=== PATIENT | female | born 1960 | race Caucasian/White ===

== ENCOUNTER 2017-05-28 09:24 | Emergency (ER) | payer MEDICARE, MEDICAID ==
[2017-05-28] MEDS ORDERED: Sodium Chloride 0.9% 1,000 ML IV ONE (09:39)
[2017-05-28] MEDS ORDERED: Gabapentin 300 MG Cap PO ONE (09:42)
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
[2017-05-28 09:55] VITALS: BP 134/90
[2017-05-28] MEDS ORDERED: Ketorolac 30 MG/ML SDV IM ONE (10:04)
--- NOTE | 2017-05-28 11:05 | CT ---
Clinical history: 56-year-old 178 pound female complaining of upper extremity weakness (history of ce rvical spine spine surgery) reported on previous MRI cervical spine 31 August 2016 for neck pain to have "greater prominence left paracentral disc protrusion at C7-T1 with moderate central stenosis and multilevel spondylosis anterior cervical fusion C4-C6 since 2014". Scan technique: Volume acquisition of data emergency unenhanced CT scan of the cervical spine obtaine d with patient lying supine on the Siemens multi slice CT scanner [place], [place]. All data archived in the PACS system for storage, reformatting and study. Interpretation: Abnormal. 1. Anterior cervical fusion (plate and horizontal screws anchored in the CC 4, C5 and C6 vertebral miranda dies) and reversal or straightening of the usual cervical lordosis. 2. Abnormal intervertebral disc space narrowing C6-7 with associated large hypertrophic uncinate spur s extending posteriorly and laterally into the bony spinal canal at the C56 and C6-7 levels. 3. No sign of prevertebral soft tissue swelling, cervical fracture or spondylolisthesis. No jumped lo cked facets. 4. Less pronounced disc space narrowing but again marginal osteophyte (disc-osteophyte?) posteriorly at the C7-T1 level, particularly to the left of midline. CONCLUSION: Signs of chronic multilevel disc disease with hypertrophic osteophyte formation and anter ior lower cervical fusion. No acute fracture or dislocation.
--- NOTE | 2017-05-28 11:29 | CT ---
56-year-old 178 pound female with bilateral upper extremity weakness (multilevel disc disease, anter ior fusion and hypertrophic uncinate spurs) and low back pain. Scan technique: Volume acquisition of data unenhanced CT scan of the lumbar spine and sacral obtained with patient lying supine on a Siemens multi slice scanner [place], [place]. All data archived in the PACS system for storage, reformatting axial/sagittal/coronal planes and study. Interpretation: Abnormal. 1. Exaggerated lumbar lordosis and generalized osteopenia. 2. *Signs of chronic multilevel lower lumbar disc disease i.e. interspace narrowing with endplate scl erosis, gas in the nucleus pulposus and hypertrophic marginal spur formation lower 2 levels (transiti onal S1 vertebra). 3. No sign of pathologic skeletal lesion, lumbar fracture or spondylolisthesis (dense reactive facet joint sclerosis bilaterally). 4. Symmetric spacing normal-appearing SI and both hip joints without arthritic degenerative change.
== END 2017-05-28 13:17 | disposition home or self-care (01) ==
LOC: DL.ED 09:24
DX: M50.322 Other cervical disc degeneration at C5-C6 level (principal); M50.323 Other cervical disc degeneration at C6-C7 level; M51.36 Other intervertebral disc degeneration, lumbar region; Z88.8 Allergy status to other drugs, medicaments and biological substances; Z79.899 Other long term (current) drug therapy; M19.90 Unspecified osteoarthritis, unspecified site
CPT/HCPCS: 72125; 72131; 80305; 81001; 96360; 96372; 99284; 99285; A9270; J1885; J7030; 12015

== ENCOUNTER 2017-07-04 22:03 | Emergency (ER) | payer MEDICARE, MEDICAID ==
[2017-07-04 22:14] VITALS: BP 133/108
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
[2017-07-04 22:51] LABS: CHLORIDE,CL 105 mmol/L (101-111); SODIUM,NA 142 mmol/L (135-145)
== END 2017-07-04 23:21 | disposition home or self-care (01) ==
LOC: DL.ED 22:03
DX: R56.9 Unspecified convulsions (principal); F43.0 Acute stress reaction; Z88.8 Allergy status to other drugs, medicaments and biological substances; Z79.899 Other long term (current) drug therapy
CPT/HCPCS: 36415; 80053; 80305; 81003; 85025; 99284; G0480; 99283

== ENCOUNTER 2017-10-01 14:00 | Emergency (ER) | payer MEDICARE, MEDICAID ==
[2017-10-01] MEDS ORDERED: Morphine 4 MG/ML Syringe IVPUSH ONE (14:33)
[2017-10-01] MEDS ORDERED: Sodium Chloride 0.9% 10 ML Syringe FLUSH PRN (14:34)
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
[2017-10-01] MEDS ORDERED: LORazepam 2 MG/ML Syringe IVPUSH ONE (14:48)
--- NOTE | 2017-10-01 15:12 | CR ---
Clinical history: 57-year-old female with unexplained abdominal pain. Interpretation: Large volume of stool in the descending right, descending left and rectosigmoid colon i.e. obstipation. No foreign body, pathologic calcifications, abdominal soft tissue mass or signs of mechanical small b owel obstruction (gas and fluid distending the stomach. Carbonated Soda?). No free subdiaphragmatic a ir (atelectasis/fibrosis left lung base) Arthritic changes lower lumbar spine. Symmetric spacing normal-appearing SI and hip joints.
[2017-10-01 15:19] LABS: CHLORIDE,CL 100 mmol/L (101-111); SODIUM,NA 135 mmol/L (135-145)
[2017-10-01 17:45] VITALS: BP 94/58
== END 2017-10-01 18:00 | disposition home or self-care (01) ==
LOC: DL.ED 14:00
DX: N30.91 Cystitis, unspecified with hematuria (principal); K59.00 Constipation, unspecified; F41.9 Anxiety disorder, unspecified; Z88.8 Allergy status to other drugs, medicaments and biological substances; Z79.899 Other long term (current) drug therapy
CPT/HCPCS: 36415; 74019; 80048; 80305; 81001; 85025; 96374; 96375; 99283; J2060; J2270; J7050

== ENCOUNTER 2017-10-30 19:31 | Emergency (ER) | payer MEDICARE, MEDICAID ==
--- NOTE | 2017-10-30 19:40 | EDM.PDOC ---
ED HPI GENERAL MEDICAL PROBLEM - General Chief Complaint: Neuro Symptoms/Deficits Stated Complaint: AMBULANCE,UNRESPONSIVE Time Seen by Provider: 10/30/17 19:35 Source of Information: Reports: EMS History Limitations: Reports: Altered Mental Status - History of Present Illness INITIAL COMMENTS - FREE TEXT/NARRATIVE: EMS state pt's friends went to check on her and found pt unresponsive. they states she was fine 5 hours ago. EMS arrived @ scene of unresponsive pt but only to pain. pt arrived to ER woke up disoriented asking who called to bring her here and whats happening. also pt incontenant. pt has h/o seizures. pt returns to unresponsive only to pain when unstimulated. - Related Data Allergies Allergy/AdvReac Type Severity Reaction Status Date / Time risperidone [From Risperdal] Allergy Fever Verified 10/03/16 19:52 topiramate [From Topamax] Allergy Cannot Verified 05/28/17 09:58 Remember Home Meds: Home Meds traZODone 3 tab PO BEDTIME 06/19/15 [History] DULoxetine [Cymbalta] 60 mg PO DAILY 06/30/16 [History] hydrOXYzine Pamoate [Vistaril] 25 mg PO Q8H PRN 06/30/16 [History] Hydrocodone/Acetaminophen [Hydrocodon-Acetaminophn 10-325] 1 tab PO TID PRN [History] Gabapentin [Neurontin] 1 tab PO TID 10/03/16 [History] Past Medical History HEENT History: Reports: Impaired Vision Gastrointestinal History: Reports: Other (See Below) 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 [employer]ANT [employer]AX[employer] 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 History: Reports: Other (See Below) Other OB/BYN History: hysterectomy, still has ovaries however no uterus Musculoskeletal History: Reports: Arthritis, Fibromyalgia Neurological History: Reports: Other (See Below) Other Neuro History: neck surgery Psychiatric History: Reports: Anxiety, Depression - Past Surgical History Musculoskeletal Surgical History: Reports: Arthroscopic Knee, Knee Replacement, Shoulder Surgery, Other (See Below) Social & Family History - Family History Family Medical History: Noncontributory - Tobacco Use Smoking Status *Q: Never Smoker Years of Tobacco use: 15 Used Tobacco, but Quit: No Second Hand Smoke Exposure: No - Caffeine Use Caffeine Use: Reports: Coffee, Soda, Tea - Alcohol Use Days Per Week of Alcohol Use: 0 - Recreational Drug Use Recreational Drug Use: Yes Drug Use in Last 12 Months: Yes Recreational Drug Type: Reports: Marijuana/Hashish Recreational Drug Use Frequency: Monthly ED ROS GENERAL - Review of Systems Review Of Systems: ROS reveals no pertinent complaints other than HPI. ED EXAM, NEURO - Physical Exam Exam: See Below Exam Limited By: No Limitations General Appearance: Alert, WD/WN, Mild Distress, Other (disoriented) Eye Exam: Bilateral Eye: PERRL (pupils ess ER @ 4mm) Ears: Hearing Grossly Normal Throat/Mouth: Normal Voice, No Airway Compromise Head Exam: Atraumatic Neck: Non-Tender, Full Range of Motion Respiratory/Chest: No Respiratory Distress Cardiovascular: Regular Rate, Rhythm GI/Abdominal: Soft, Non-Tender Neurological: Alert, No Motor/Sensory Deficits Psychiatric: Flat Affect Skin Exam: Warm, Dry, Normal Color Course - Vital Signs Last Recorded V/S: Last Vital Signs Temp 36.6 C 10/30/17 21:12 Pulse 116 H 10/30/17 21:36 Resp 11 L 10/30/17 21:36 BP 90/71 10/30/17 21:36 Pulse Ox 93 L 10/30/17 21:36 - Orders/Labs/Meds Orders: Active Orders 24 hr Category Date Time Status EKG 12 Lead [EKG Documentation Completion] [RC] STAT Care 10/30/17 19:40 Active Insert [place] Catheter [Insert Urinary Catheter] [OM.PC] Care 10/30/17 20:15 Ordered Q24H POC Glucose [Blood Glucose Check, Bedside] [RC] ONETIME Care 10/30/17 20:11 Active Urinary Catheter Assessment [RC] ASDIRECTED Care 10/30/17 20:02 Active CULTURE BLOOD [BC] Stat Lab 10/30/17 19:45 Received Orphenadrine [Norflex] Med 10/30/17 20:45 Active 60 mg IM Q12H Medication Orders Orphenadrine Citrate (Norflex) 60 mg IM Q12H [facility] Last Admin: 10/30/17 20:40 Dose: 60 mg Labs: Laboratory Tests 10/30/17 10/30/17 10/30/17 Range/Units 19:45 19:45 19:45 WBC 12.1 H (5.0-10.0) 10^3/uL RBC 3.65 L (4.2-5.4) 10^6/uL Hgb 10.6 L (12.0-16.0) g/dL Hct 33.0 L (37.0-47.0) % MCV 90.4 (80-100) fL MCH 29.0 (27.0-34.0) pg MCHC 32.1 L (33.0-35.0) g/dL Plt Count 185 (150-450) 10^3/uL Neut % (Auto) 79.9 H (42.2-75.2) % Lymph % (Auto) 9.2 L (20.5-50.1) % [place] % (Auto) 10.1 H (2-8) % Eos % (Auto) 0.7 L (1.0-3.0) % Baso % (Auto) 0.1 (0.0-1.0) % PT 9.7 (9.0-12.0) SEC INR 1.0 (0.9-1.2) APTT 25.5 (22.0-34.0) SEC Sodium 132 L (135-145) mmol/L Potassium 4.2 (3.6-5.0) mmol/L Chloride 101 (101-111) mmol/L Carbon Dioxide 24.0 (21.0-31.0) mmol/L Anion Gap 11.2 BUN 20 H (7-18) mg/dL Creatinine 1.1 (0.6-1.3) mg/dL Est Cr Clr Drug Dosing TNP Estimated GFR (MDRD) 52 BUN/Creatinine Ratio 18.18 Glucose 115 H (74-105) mg/dL POC Glucose (70-105) mg/dl Lactic Acid (0.5-2.2) mmol/L Calcium 8.4 (8.4-10.2) mg/dl Total Bilirubin 0.5 (0.2-1.0) mg/dL AST 27 (10-42) IU/L ALT 27 (10-60) IU/L Alkaline Phosphatase 65 (42-121) IU/L Troponin I < 0.02 (0.00-0.02) ng/ml Total Protein 6.8 (6.7-8.2) g/dl Albumin 3.7 (3.2-5.5) g/dl Globulin 3.1 Albumin/Globulin Ratio 1.19 Urine Color (YELLOW) Urine Appearance (CLEAR) Urine pH (5.0-9.0) Ur Specific [place] (1.005-1.030) Urine Protein (NEGATIVE) Urine Glucose (UA) (NEGATIVE) Urine Ketones (NEGATIVE) Urine Occult Blood (NEGATIVE) Urine Nitrite (NEGATIVE) Urine Bilirubin (NEGATIVE) Urine Urobilinogen (0.2-1.0) mg/dL Ur Leukocyte Esterase (NEGATIVE) Urine RBC /HPF Urine WBC (0-5/HPF) /HPF Ur Epithelial Cells /HPF Urine Bacteria (0-FEW/HPF) /HPF Urine Opiates Screen (NEGATIVE) Ur Oxycodone Screen (NEGATIVE) Urine Methadone Screen (NEGATIVE) Ur Barbiturates Screen (NEGATIVE) Phenytoin < 2.5 L (10-20) ug/dL U Tricyclic Antidepress (NEGATIVE) Ur Phencyclidine Scrn (NEGATIVE) Ur Amphetamine Screen (NEGATIVE) U Methamphetamines Scrn (NEGATIVE) Urine MDMA Screen (NEGATIVE) U Benzodiazepines Scrn (NEGATIVE) Urine Cocaine Screen (NEGATIVE) U Marijuana (THC) Screen (NEGATIVE) Ethyl Alcohol < 5 mg/dL 10/30/17 10/30/17 10/30/17 Range/Units 19:45 20:10 20:10 WBC (5.0-10.0) 10^3/uL RBC (4.2-5.4) 10^6/uL Hgb (12.0-16.0) g/dL Hct (37.0-47.0) % MCV (80-100) fL MCH (27.0-34.0) pg MCHC (33.0-35.0) g/dL Plt Count (150-450) 10^3/uL Neut % (Auto) (42.2-75.2) % Lymph % (Auto) (20.5-50.1) % [place] % (Auto) (2-8) % Eos % (Auto) (1.0-3.0) % Baso % (Auto) (0.0-1.0) % PT (9.0-12.0) SEC INR (0.9-1.2) APTT (22.0-34.0) SEC Sodium (135-145) mmol/L Potassium (3.6-5.0) mmol/L Chloride (101-111) mmol/L Carbon Dioxide (21.0-31.0) mmol/L Anion Gap BUN (7-18) mg/dL Creatinine (0.6-1.3) mg/dL Est Cr Clr Drug Dosing Estimated GFR (MDRD) BUN/Creatinine Ratio Glucose (74-105) mg/dL POC Glucose (70-105) mg/dl Lactic Acid 1.3 (0.5-2.2) mmol/L Calcium (8.4-10.2) mg/dl Total Bilirubin (0.2-1.0) mg/dL AST (10-42) IU/L ALT (10-60) IU/L Alkaline Phosphatase (42-121) IU/L Troponin I (0.00-0.02) ng/ml Total Protein (6.7-8.2) g/dl Albumin (3.2-5.5) g/dl Globulin Albumin/Globulin Ratio Urine Color Dark yellow (YELLOW) Urine Appearance Clear (CLEAR) Urine pH 5.5 (5.0-9.0) Ur Specific [place] 1.020 (1.005-1.030) Urine Protein Trace H (NEGATIVE) Urine Glucose (UA) Negative (NEGATIVE) Urine Ketones Trace H (NEGATIVE) Urine Occult Blood Negative (NEGATIVE) Urine Nitrite Negative (NEGATIVE) Urine Bilirubin Small H (NEGATIVE) Urine Urobilinogen 0.2 (0.2-1.0) mg/dL Ur Leukocyte Esterase Negative (NEGATIVE) Urine RBC 0-5 /HPF Urine WBC 0-5 (0-5/HPF) /HPF Ur Epithelial Cells Rare /HPF Urine Bacteria Many H (0-FEW/HPF) /HPF Urine Opiates Screen Positive H (NEGATIVE) Ur Oxycodone Screen Positive H (NEGATIVE) Urine Methadone Screen Negative (NEGATIVE) Ur Barbiturates Screen Negative (NEGATIVE) Phenytoin (10-20) ug/dL U Tricyclic Antidepress Negative (NEGATIVE) Ur Phencyclidine Scrn Negative (NEGATIVE) Ur Amphetamine Screen Negative (NEGATIVE) U Methamphetamines Scrn Negative (NEGATIVE) Urine MDMA Screen Negative (NEGATIVE) U Benzodiazepines Scrn Negative (NEGATIVE) Urine Cocaine Screen Negative (NEGATIVE) U Marijuana (THC) Screen Negative (NEGATIVE) Ethyl Alcohol mg/dL 10/30/17 Range/Units 20:10 WBC (5.0-10.0) 10^3/uL RBC (4.2-5.4) 10^6/uL Hgb (12.0-16.0) g/dL Hct (37.0-47.0) % MCV (80-100) fL MCH (27.0-34.0) pg MCHC (33.0-35.0) g/dL Plt Count (150-450) 10^3/uL Neut % (Auto) (42.2-75.2) % Lymph % (Auto) (20.5-50.1) % [place] % (Auto) (2-8) % Eos % (Auto) (1.0-3.0) % Baso % (Auto) (0.0-1.0) % PT (9.0-12.0) SEC INR (0.9-1.2) APTT (22.0-34.0) SEC Sodium (135-145) mmol/L Potassium (3.6-5.0) mmol/L Chloride (101-111) mmol/L Carbon Dioxide (21.0-31.0) mmol/L Anion Gap BUN (7-18) mg/dL Creatinine (0.6-1.3) mg/dL Est Cr Clr Drug Dosing Estimated GFR (MDRD) BUN/Creatinine Ratio Glucose (74-105) mg/dL POC Glucose 94 (70-105) mg/dl Lactic Acid (0.5-2.2) mmol/L Calcium (8.4-10.2) mg/dl Total Bilirubin (0.2-1.0) mg/dL AST (10-42) IU/L ALT (10-60) IU/L Alkaline Phosphatase (42-121) IU/L Troponin I (0.00-0.02) ng/ml Total Protein (6.7-8.2) g/dl Albumin (3.2-5.5) g/dl Globulin Albumin/Globulin Ratio Urine Color (YELLOW) Urine Appearance (CLEAR) Urine pH (5.0-9.0) Ur Specific [place] (1.005-1.030) Urine Protein (NEGATIVE) Urine Glucose (UA) (NEGATIVE) Urine Ketones (NEGATIVE) Urine Occult Blood (NEGATIVE) Urine Nitrite (NEGATIVE) Urine Bilirubin (NEGATIVE) Urine Urobilinogen (0.2-1.0) mg/dL Ur Leukocyte Esterase (NEGATIVE) Urine RBC /HPF Urine WBC (0-5/HPF) /HPF Ur Epithelial Cells /HPF Urine Bacteria (0-FEW/HPF) /HPF Urine Opiates Screen (NEGATIVE) Ur Oxycodone Screen (NEGATIVE) Urine Methadone Screen (NEGATIVE) Ur Barbiturates Screen (NEGATIVE) Phenytoin (10-20) ug/dL U Tricyclic Antidepress (NEGATIVE) Ur Phencyclidine Scrn (NEGATIVE) Ur Amphetamine Screen (NEGATIVE) U Methamphetamines Scrn (NEGATIVE) Urine MDMA Screen (NEGATIVE) U Benzodiazepines Scrn (NEGATIVE) Urine Cocaine Screen (NEGATIVE) U Marijuana (THC) Screen (NEGATIVE) Ethyl Alcohol mg/dL Meds: Medications Generic Name Dose Route Start Last Admin Trade Name Freq PRN Reason Stop Dose Admin Orphenadrine Citrate 60 mg 10/30/17 20:45 10/30/17 20:40 Norflex IM 60 mg Q12H JULIET Administration Discontinued Medications Generic Name Dose Route Start Last Admin Trade Name Freq PRN Reason Stop Dose Admin Ketorolac Tromethamine 30 mg 10/30/17 20:20 10/30/17 20:23 Toradol IVPUSH 10/30/17 20:21 30 mg ONETIME ONE Administration Ketorolac Tromethamine Confirm 10/30/17 20:22 10/30/17 20:25 Toradol Administered 10/30/17 20:23 Not Given Dose 30 mg .ROUTE .STK-MED ONE Naloxone HCl 0.5 mg 10/30/17 20:11 10/30/17 20:13 Narcan IVPUSH 10/30/17 20:12 0.5 mg ONETIME ONE Administration Naloxone HCl Confirm 10/30/17 20:12 10/30/17 20:25 Narcan Administered 10/30/17 20:13 Not Given Dose 2 mg .ROUTE .STK-MED ONE - Re-Assessments/Exams Free Text/Narrative Re-Assessment/Exam: 10/30/17 20:06 now unresponsive to pain. jonah inserted. 10/30/17 20:21 s/p narcan pt woke up got angry asking why her friends got into her appt. also now in pain and crying. 10/30/17 20:41 pt states wants to go home and her mother can come to get her & she is not happy about her pain returning after narcan was given. explained to pt re' excess opiods can produce bad results. pt states she has been taking oxy for the past year and never had any problems with them. pt still unhappy about why her friends got into her appt. 10/30/17 21:42 mother arrived. situation discussed with mother. mother and daughter discussed Tx plan. pt prefers home. 10/30/17 22:00 pt tried to stand but unable since her back hurts too much. denies leg weakness & recent falling. 10/30/17 22:[address] Ngo @ who kindly accepted pt. Departure - Departure Time of Disposition: 22:35 Disposition: DC/Tfer to Acute Hospital 02 Condition: Fair Clinical Impression: Lumbar paraspinal muscle spasm Opioid antagonist adverse reaction Qualifiers: Encounter type: initial encounter Qualified Code(s): T50.7X5A - Adverse effect of analeptics and opioid receptor antagonists, initial encounter - Discharge Information Forms: Interfacility Transfer EMTALA Additional Instructions: 1) avoid using excessive pain meds 2) see family doctor Wednesday 3) return if there is any change or concern - My Orders Last 24 Hours: My Active Orders 10/30/17 19:40 EKG 12 Lead [EKG Documentation Completion] [RC] STAT 10/30/17 19:45 CULTURE BLOOD [BC] Stat 10/30/17 20:02 Urinary Catheter Assessment [RC] ASDIRECTED 10/30/17 20:11 POC Glucose [Blood Glucose Check, Bedside] [RC] ONETIME 10/30/17 20:15 Insert Montejo Catheter [Insert Urinary Catheter] [OM.PC] Q24H 10/30/17 20:45 Orphenadrine [Norflex] 60 mg IM Q12H - Assessment/Plan Last 24 Hours: My Active Orders 10/30/17 19:40 EKG 12 Lead [EKG Documentation Completion] [RC] STAT 10/30/17 19:45 CULTURE BLOOD [BC] Stat 10/30/17 20:02 Urinary Catheter Assessment [RC] ASDIRECTED 10/30/17 20:11 POC Glucose [Blood Glucose Check, Bedside] [RC] ONETIME 10/30/17 20:15 Insert Montejo Catheter [Insert Urinary Catheter] [OM.PC] Q24H 10/30/17 20:45 Orphenadrine [Norflex] 60 mg IM Q12H
[2017-10-30] MEDS ORDERED: Naloxone 2 MG/2 ML Syringe IVPUSH ONE (20:11)
[2017-10-30] MEDS ORDERED: Naloxone 2 MG/2 ML Syringe ONE (20:12)
[2017-10-30] MEDS ORDERED: Ketorolac 30 MG/ML SDV IVPUSH ONE (20:20)
[2017-10-30] MEDS ORDERED: Ketorolac 30 MG/ML SDV ONE (20:22)
[2017-10-30 20:28] LABS: CHLORIDE,CL 101 mmol/L (101-111); SODIUM,NA 132 mmol/L (135-145)
[2017-10-30 21:39] VITALS: BP 90/71
--- NOTE | 2017-11-01 10:26 | EKG ---
10/30/2017- RUSTY MUNSON - This is normal sinus rhythm, ventricular rate 97 beats per minute, normal OH interval and QRS duration, normal axis. No significant ST-T changes. [facility] /[id number]
== END 2017-10-30 22:58 ==
LOC: DL.ED 19:31
DX: M62.830 Muscle spasm of back (principal); T50.7X5A Adverse effect of analeptics and opioid receptor antagonists, initial encounter; F41.9 Anxiety disorder, unspecified; F32.9 Major depressive disorder, single episode, unspecified; Z88.8 Allergy status to other drugs, medicaments and biological substances; Z79.899 Other long term (current) drug therapy; Z86.69 Personal history of other diseases of the nervous system and sense organs
CPT/HCPCS: 36415; 51702; 70450; 80053; 80185; 80305; 81001; 82962; 83605; 84484; 85025; 85610; 85730; 87040; 93005; 93010; 96372; 96374; 96375; 99284; 99285; G0480; J1885; J2310; J2360

== ENCOUNTER 2017-11-30 12:19 | Emergency (ER) | payer MEDICARE, MEDICAID ==
[2017-11-30] MEDS ORDERED: Sodium Chloride 0.9% 1,000 ML IV ONE (14:36)
[2017-11-30] MEDS ORDERED: Ketorolac 30 MG/ML SDV IVPUSH ONE (14:36)
--- NOTE | 2017-11-30 14:43 | EDM.PDOC ---
ED HPI GENERAL MEDICAL PROBLEM - General Chief Complaint: Back Pain or Injury Stated Complaint: FROM CLINIC Time Seen by Provider: 11/30/17 14:25 Source of Information: Reports: Patient History Limitations: Reports: No Limitations - History of Present Illness INITIAL COMMENTS - FREE TEXT/NARRATIVE: This 57 yo female patient reports to the ED with left flank pain. The patient reports her symptoms started on Wednesday, but got much worse today. The patient was seen in the clinic prior to coming to the ED, but was advised to come to the ED due to a fall yesterday. The patient reported that she fell yesterday while changing a light bulb and hit her head. The patient reports no pain in her head at this time and refused a CT of her head to nursing. The patient reports she has a history of a prolapsed bladder and gets frequent UTI's with similar symptoms, but also believes she may have a kidney stone. Onset Date: 11/26/17 Duration: Constant, Getting Worse Location: Reports: Back (left flank) Quality: Reports: Ache, Sharp, Stabbing Severity: Severe Improves with: Reports: None Worsens with: Reports: None (s) Context: Reports: Other Associated Symptoms: Reports: Other (left flank pain) Right Flank Pain Score (Numeric/FACES): 10 - Related Data Allergies Allergy/AdvReac Type Severity Reaction Status Date / Time risperidone [From Risperdal] Allergy Fever Verified 10/03/16 19:52 topiramate [From Topamax] Allergy Cannot Verified 05/28/17 09:58 Remember Home Meds: Home Meds traZODone 3 tab PO BEDTIME 06/19/15 [History] DULoxetine [Cymbalta] 60 mg PO DAILY 06/30/16 [History] hydrOXYzine Pamoate [Vistaril] 25 mg PO Q8H PRN 06/30/16 [History] Hydrocodone/Acetaminophen [Hydrocodon-Acetaminophn 10-325] 1 tab PO TID PRN [History] Gabapentin [Neurontin] 1 tab PO TID 10/03/16 [History] Past Medical History HEENT History: Reports: Impaired Vision Gastrointestinal History: Reports: Other (See Below) 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: Reports: Other (See Below) Other OB/BYN History: hysterectomy, still has ovaries however no uterus Musculoskeletal History: Reports: Arthritis, Fibromyalgia Neurological History: Reports: Other (See Below) Other Neuro History: neck surgery Psychiatric History: Reports: Anxiety, Depression - Past Surgical History Musculoskeletal Surgical History: Reports: Arthroscopic Knee, Knee Replacement, Shoulder Surgery, Other (See Below) Social & Family History - Family History Family Medical History: Noncontributory - Tobacco Use Smoking Status *Q: Never Smoker Years of Tobacco use: 15 Used Tobacco, but Quit: No Second Hand Smoke Exposure: No - Caffeine Use Caffeine Use: Reports: Coffee, Soda, Tea - Alcohol Use Days Per Week of Alcohol Use: 0 - Recreational Drug Use Recreational Drug Use: Yes Drug Use in Last 12 Months: Yes Recreational Drug Type: Reports: Marijuana/Hashish Recreational Drug Use Frequency: Monthly ED ROS GENERAL - Review of Systems Review Of Systems: ROS reveals no pertinent complaints other than HPI. ED EXAM, RENAL/ - Physical Exam Exam: See Below Exam Limited By: No Limitations General Appearance: Alert, WD/WN, Moderate Distress Eye Exam: Bilateral Eye: EOMI, Normal Inspection, PERRL Ears: Normal External Exam, Normal Canal, Hearing Grossly Normal, Normal TMs Nose: Normal Inspection, Normal Mucosa, No Blood Throat/Mouth: Normal Inspection, Normal Lips, Normal Teeth, Normal Gums, Normal Oropharynx, Normal Voice, No Airway Compromise Head: Atraumatic, Normocephalic Neck: Normal Inspection, Supple, Non-Tender, Full Range of Motion Respiratory/Chest: No Respiratory Distress, Lungs Clear, Normal Breath Sounds, No Accessory Muscle Use, Chest Non-Tender Cardiovascular: Normal Peripheral Pulses, Regular Rate, Rhythm, No Edema, No Gallop, No JVD, No Murmur, No Rub GI/Abdominal: Tender (generalized ) (Female) Exam: Deferred Rectal (Female) Exam: Deferred Back Exam: CVA Tenderness (L) Neurological: Alert, Oriented, CN II-XII Intact, Normal Cognition, Normal Gait, Normal Reflexes, No Motor/Sensory Deficits Psychiatric: Anxious Skin Exam: Warm, Dry, Intact, Normal Color, No Rash Course - Vital Signs Last Recorded V/S: Last Vital Signs Temp 37.3 C 11/30/17 14:20 Pulse 119 H 11/30/17 14:20 Resp 20 11/30/17 14:20 BP 159/103 H 11/30/17 14:20 Pulse Ox 96 11/30/17 14:20 - Orders/Labs/Meds Orders: Active Orders 24 hr Category Date Time Status Abdomen Pelvis wo Cont [CT] Urgent Exams 11/30/17 15:18 Taken DRUG SCREEN URINE BIORAD [URCHEM] Stat Lab 11/30/17 15:11 Ordered UA W/MICROSCOPIC [URIN] Stat Lab 11/30/17 15:11 Ordered Labs: Laboratory Tests 11/30/17 11/30/17 11/30/17 Range/Units 14:48 14:48 15:11 WBC 9.8 (5.0-10.0) 10^3/uL RBC 3.29 L (4.2-5.4) 10^6/uL Hgb 9.6 L (12.0-16.0) g/dL Hct 28.9 L (37.0-47.0) % MCV 87.8 (80-100) fL MCH 29.2 (27.0-34.0) pg MCHC 33.2 (33.0-35.0) g/dL Plt Count 206 (150-450) 10^3/uL Neut % (Auto) 63.1 (42.2-75.2) % Lymph % (Auto) 26.4 (20.5-50.1) % [place] % (Auto) 8.2 H (2-8) % Eos % (Auto) 1.8 (1.0-3.0) % Baso % (Auto) 0.5 (0.0-1.0) % Sodium (135-145) mmol/L Urine Color Yellow (YELLOW) Urine Appearance Clear (CLEAR) Urine pH 5.5 (5.0-9.0) Ur Specific [place] 1.025 (1.005-1.030) Urine Protein Negative (NEGATIVE) Urine Glucose (UA) Negative (NEGATIVE) Urine Ketones Trace H (NEGATIVE) Urine Occult Blood Moderate H (NEGATIVE) Urine Nitrite Negative (NEGATIVE) Urine Bilirubin Negative (NEGATIVE) Urine Urobilinogen 0.2 (0.2-1.0) mg/dL Ur Leukocyte Esterase Negative (NEGATIVE) Urine RBC 10-20 H /HPF Urine WBC 0-5 (0-5/HPF) /HPF Ur Epithelial Cells Moderate H /HPF Urine Bacteria Moderate H (0-FEW/HPF) /HPF Hyaline Casts Few H /LPF Urine Opiates Screen (NEGATIVE) Ur Oxycodone Screen (NEGATIVE) Urine Methadone Screen (NEGATIVE) Ur Barbiturates Screen (NEGATIVE) U Tricyclic Antidepress (NEGATIVE) Ur Phencyclidine Scrn (NEGATIVE) Ur Amphetamine Screen (NEGATIVE) U Methamphetamines Scrn (NEGATIVE) Urine MDMA Screen (NEGATIVE) U Benzodiazepines Scrn (NEGATIVE) Urine Cocaine Screen (NEGATIVE) U Marijuana (THC) Screen (NEGATIVE) 11/30/17 Range/Units 15:11 WBC (5.0-10.0) 10^3/uL RBC (4.2-5.4) 10^6/uL Hgb (12.0-16.0) g/dL Hct (37.0-47.0) % MCV (80-100) fL MCH (27.0-34.0) pg MCHC (33.0-35.0) g/dL Plt Count (150-450) 10^3/uL Neut % (Auto) (42.2-75.2) % Lymph % (Auto) (20.5-50.1) % [place] % (Auto) (2-8) % Eos % (Auto) (1.0-3.0) % Baso % (Auto) (0.0-1.0) % Sodium (135-145) mmol/L Urine Color (YELLOW) Urine Appearance (CLEAR) Urine pH (5.0-9.0) Ur Specific [place] (1.005-1.030) Urine Protein (NEGATIVE) Urine Glucose (UA) (NEGATIVE) Urine Ketones (NEGATIVE) Urine Occult Blood (NEGATIVE) Urine Nitrite (NEGATIVE) Urine Bilirubin (NEGATIVE) Urine Urobilinogen (0.2-1.0) mg/dL Ur Leukocyte Esterase (NEGATIVE) Urine RBC /HPF Urine WBC (0-5/HPF) /HPF Ur Epithelial Cells /HPF Urine Bacteria (0-FEW/HPF) /HPF Hyaline Casts /LPF Urine Opiates Screen Positive H (NEGATIVE) Ur Oxycodone Screen Positive H (NEGATIVE) Urine Methadone Screen Negative (NEGATIVE) Ur Barbiturates Screen Negative (NEGATIVE) U Tricyclic Antidepress Negative (NEGATIVE) Ur Phencyclidine Scrn Negative (NEGATIVE) Ur Amphetamine Screen Negative (NEGATIVE) U Methamphetamines Scrn Negative (NEGATIVE) Urine MDMA Screen Negative (NEGATIVE) U Benzodiazepines Scrn Positive H (NEGATIVE) Urine Cocaine Screen Negative (NEGATIVE) U Marijuana (THC) Screen Negative (NEGATIVE) Meds: Medications Discontinued Medications Generic Name Dose Route Start Last Admin Trade Name Maryam PRN Reason Stop Dose Admin Hydromorphone HCl 0.5 mg 11/30/17 15:21 11/30/17 15:25 Dilaudid IVPUSH 11/30/17 15:22 0.5 mg ONETIME ONE Administration Sodium Chloride 1,000 mls @ 999 mls/hr 11/30/17 14:36 11/30/17 14:52 Normal Saline IV 11/30/17 15:36 999 mls/hr .BOLUS ONE Administration Ketorolac Tromethamine 30 mg 11/30/17 14:36 11/30/17 14:52 Toradol IVPUSH 11/30/17 14:37 30 mg ONETIME ONE Administration Departure - Departure Time of Disposition: 16:29 Disposition: Home, Self-Care 01 Condition: Fair Clinical Impression: Strain of muscle, fascia and tendon of lower back, initial encounter Low back pain Qualifiers: Chronicity: acute Back pain laterality: left Sciatica presence: without sciatica Qualified Code(s): M54.5 - Low back pain - Discharge Information Instructions: Back Pain, Adult, [id number], Muscle Strain, [id number] Forms: ED Department Discharge Care Plan Goals: The patient was advised of the examination, lab, and CT results during the visit. The patient was given IV Toradol and IV Dilaudid while in the ED. The patient was encouraged to take her medications as previously prescribed. If the patient has any additional symptoms or concerns, the patient should follow-up with her primary care facility or return to the emergency department. - My Orders Last 24 Hours: My Active Orders 11/30/17 15:11 DRUG SCREEN URINE BIORAD [URCHEM] Stat UA W/MICROSCOPIC [URIN] Stat 11/30/17 15:18 Abdomen Pelvis wo Cont [CT] Urgent - Assessment/Plan Last 24 Hours: My Active Orders 11/30/17 15:11 DRUG SCREEN URINE BIORAD [URCHEM] Stat UA W/MICROSCOPIC [URIN] Stat 11/30/17 15:18 Abdomen Pelvis wo Cont [CT] Urgent
[2017-11-30] MEDS ORDERED: HYDROmorphone 0.5 MG/0.5 ML Syringe IVPUSH ONE (15:21)
[2017-11-30 17:01] VITALS: BP 106/68
--- NOTE | 2017-12-10 15:02 | CT ---
Addendum report: CT scan abdomen 30 November 2017 reviewed confirming isolated, nondisplaced posterior l eft ninth (9) rib fracture.
== END 2017-11-30 17:00 | disposition home or self-care (01) ==
LOC: DL.ED 12:19
DX: S39.012A Strain of muscle, fascia and tendon of lower back, initial encounter (principal); Z88.8 Allergy status to other drugs, medicaments and biological substances; Z79.899 Other long term (current) drug therapy; W19.XXXA Unspecified fall, initial encounter; W22.8XXA Striking against or struck by other objects, initial encounter
CPT/HCPCS: 36415; 74176; 80053; 80305; 81001; 85025; 96361; 96374; 96375; 99284; J1170; J1885; J7030

== ENCOUNTER 2018-03-07 21:12 | Emergency (ER) | payer MEDICARE, MEDICAID ==
[2018-03-07] MEDS: LORazepam 2 MG/ML Syringe IVPUSH ONE ×2 (22:05→22:10)
--- NOTE | 2018-03-07 22:06 | EDM.PDOC ---
ED HPI GENERAL MEDICAL PROBLEM - General Chief Complaint: Neurological Problem Stated Complaint: SEIZURES [id number] Time Seen by Provider: 03/07/18 21:55 Source of Information: Reports: Patient History Limitations: Reports: No Limitations - History of Present Illness INITIAL COMMENTS - FREE TEXT/NARRATIVE: This 57 yo female patient reports to the ED with seizures. The patient reports she had 3 seizures while at home today and had another seizure with in the waiting room. After the patient was brought back to the ED bed, the patient had another seizure which appeared to be more of a pseudo seizure (patient continued to have purposeful movement and would respond verbally to questions). The patient was given an IV dose of Ativan. Onset: Today Duration: Intermittent Location: Reports: Generalized Quality: Reports: Other Severity: Moderate Improves with: Reports: None Worsens with: Reports: None Context: Reports: Other Associated Symptoms: Reports: Seizure Headache Pain Score (Numeric/FACES): 5 - Related Data Allergies Allergy/AdvReac Type Severity Reaction Status Date / Time topiramate [From Topamax] Allergy Cannot Verified 03/07/18 23:33 Remember risperidone [From Risperdal] AdvReac Fever Verified 03/07/18 23:33 Home Meds: Home Meds traZODone 3 tab PO BEDTIME 06/19/15 [History] DULoxetine [Cymbalta] 60 mg PO BID 06/30/16 [History] hydrOXYzine Pamoate [Vistaril] 25 mg PO Q8H PRN 06/30/16 [History] Hydrocodone/Acetaminophen [Hydrocodon-Acetaminophn 10-325] 1 tab PO TID PRN [History] Gabapentin [Neurontin] 1 tab PO TID 10/03/16 [History] traMADol HCl [Tramadol HCl] 50 mg PO Q6HR PRN 03/07/18 [History] Past Medical History HEENT History: Reports: Impaired Vision Gastrointestinal History: Reports: Other (See Below) 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: 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: 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 (See Below) Other TOBACCO 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: hysterectomy, still has ovaries however no uterus Musculoskeletal History: Reports: Arthritis, Fibromyalgia Neurological History: Reports: Other (See Below) Other Neuro History: neck surgery Psychiatric History: Reports: Anxiety, Depression - Past Surgical History Musculoskeletal Surgical History: Reports: Arthroscopic Knee, Knee Replacement, Shoulder Surgery, Other (See Below) Social & Family History - Family History Family Medical History: Noncontributory - Caffeine Use Caffeine Use: Reports: Coffee, Soda, Tea ED ROS GENERAL - Review of Systems Review Of Systems: ROS reveals no pertinent complaints other than HPI. - Physical Exam Exam: See Below Exam Limited By: No Limitations General Appearance: Alert, WD/WN, Anxious, Moderate Distress Eye Exam: Bilateral Eye: EOMI, Normal Inspection, PERRL Ears: Normal External Exam, Normal Canal, Hearing Grossly Normal, Normal TMs Nose: Normal Inspection, Normal Mucosa, No Blood Throat/Mouth: Normal Inspection, Normal Lips, Normal Teeth, Normal Gums, Normal Oropharynx, Normal Voice, No Airway Compromise Head Exam: Atraumatic, Normocephalic Neck: Normal Inspection, Supple, Non-Tender, Full Range of Motion Respiratory/Chest: No Respiratory Distress, Lungs Clear, Normal Breath Sounds, No Accessory Muscle Use, Chest Non-Tender Cardiovascular: Normal Peripheral Pulses, Regular Rate, Rhythm, No Edema, No Gallop, No JVD, No Murmur, No Rub GI/Abdominal: Normal Bowel Sounds, Soft, Non-Tender, No Organomegaly, No Distention, No Abnormal Bruit, No Mass (Female) Exam: Deferred Rectal (Female) Exam: Deferred Neuro Exam (Abbreviated): Alert, Oriented, CN II-XII Intact, Normal Reflexes, No Motor/Sensory Deficits, Slow to Respond Back Exam: Normal Inspection, Full Range of Motion, NT Extremities: Normal Inspection, Normal Range of Motion, Non-Tender, No Pedal Edema, Normal Capillary Refill Psychiatric: Anxious, Depressed Mood Skin Exam: Warm, Dry, Intact, Normal Color, No Rash Course - Vital Signs Last Recorded V/S: Last Vital Signs Temp 36.8 C 03/07/18 21:52 Pulse 118 H 03/07/18 21:52 Resp 20 03/07/18 21:52 BP 126/86 03/07/18 21:52 Pulse Ox 97 03/07/18 21:52 - Orders/Labs/Meds Orders: Active Orders 24 hr Category Date Time Status DRUG SCREEN URINE BIORAD [URCHEM] Stat Lab 03/07/18 21:54 Ordered UA W/MICROSCOPIC [URIN] Stat Lab 03/07/18 21:54 Ordered levETIRAcetam [Keppra] 500 mg Med 03/08/18 00:13 Ordered Sodium Chloride 0.9% [Normal Saline] 100 ml IV ONETIME Medication Orders Levetiracetam 500 mg/ Sodium (Chloride) 105 mls @ 400 mls/hr IV ONETIME ONE Stop: 03/08/18 00:27 Labs: Laboratory Tests 03/07/18 03/07/18 03/07/18 Range/Units 21:56 21:56 21:56 WBC 9.0 (5.0-10.0) 10^3/uL RBC 4.29 (4.2-5.4) 10^6/uL Hgb 12.1 D (12.0-16.0) g/dL Hct 38.1 (37.0-47.0) % MCV 88.8 (80-100) fL MCH 28.2 (27.0-34.0) pg MCHC 31.8 L (33.0-35.0) g/dL Plt Count 318 D (150-450) 10^3/uL Neut % (Auto) 34.9 L (42.2-75.2) % Lymph % (Auto) 55.2 H (20.5-50.1) % [place] % (Auto) 7.6 (2-8) % Eos % (Auto) 1.9 (1.0-3.0) % Baso % (Auto) 0.4 (0.0-1.0) % Sodium (135-145) mmol/L Potassium (3.6-5.0) mmol/L Chloride (101-111) mmol/L Carbon Dioxide (21.0-31.0) mmol/L Anion Gap BUN (7-18) mg/dL Creatinine (0.6-1.3) mg/dL Est Cr Clr Drug Dosing Estimated GFR (MDRD) BUN/Creatinine Ratio Glucose (74-105) mg/dL Calcium (8.4-10.2) mg/dl Magnesium 2.0 (1.8-2.5) mg/dL Total Bilirubin (0.2-1.0) mg/dL AST (10-42) IU/L ALT (10-60) IU/L Alkaline Phosphatase (42-121) IU/L Ammonia 19 (11-35) umol/L Total Protein (6.7-8.2) g/dl Albumin (3.2-5.5) g/dl Globulin Albumin/Globulin Ratio Amylase 56 (28-100) U/L Lipase 39 (22-51) U/L Urine Color (YELLOW) Urine Appearance (CLEAR) Urine pH (5.0-9.0) Ur Specific [place] (1.005-1.030) Urine Protein (NEGATIVE) Urine Glucose (UA) (NEGATIVE) Urine Ketones (NEGATIVE) Urine Occult Blood (NEGATIVE) Urine Nitrite (NEGATIVE) Urine Bilirubin (NEGATIVE) Urine Urobilinogen (0.2-1.0) mg/dL Ur Leukocyte Esterase (NEGATIVE) Urine RBC /HPF Urine WBC (0-5/HPF) /HPF Ur Epithelial Cells /HPF Amorphous Sediment (0/HPF) /HPF Urine Bacteria (0-FEW/HPF) /HPF Urine Opiates Screen (NEGATIVE) Ur Oxycodone Screen (NEGATIVE) Urine Methadone Screen (NEGATIVE) Acetaminophen < 10 Ur Barbiturates Screen (NEGATIVE) U Tricyclic Antidepress (NEGATIVE) Ur Phencyclidine Scrn (NEGATIVE) Ur Amphetamine Screen (NEGATIVE) U Methamphetamines Scrn (NEGATIVE) Urine MDMA Screen (NEGATIVE) U Benzodiazepines Scrn (NEGATIVE) Urine Cocaine Screen (NEGATIVE) U Marijuana (THC) Screen (NEGATIVE) Ethyl Alcohol 156 mg/dL 03/07/18 03/07/18 03/07/18 Range/Units 21:56 22:40 22:40 WBC (5.0-10.0) 10^3/uL RBC (4.2-5.4) 10^6/uL Hgb (12.0-16.0) g/dL Hct (37.0-47.0) % MCV (80-100) fL MCH (27.0-34.0) pg MCHC (33.0-35.0) g/dL Plt Count (150-450) 10^3/uL Neut % (Auto) (42.2-75.2) % Lymph % (Auto) (20.5-50.1) % [place] % (Auto) (2-8) % Eos % (Auto) (1.0-3.0) % Baso % (Auto) (0.0-1.0) % Sodium 138 (135-145) mmol/L Potassium 3.4 L (3.6-5.0) mmol/L Chloride 104 (101-111) mmol/L Carbon Dioxide 23.0 (21.0-31.0) mmol/L Anion Gap 14.4 BUN 10 (7-18) mg/dL Creatinine 0.9 (0.6-1.3) mg/dL Est Cr Clr Drug Dosing TNP Estimated GFR (MDRD) > 60 BUN/Creatinine Ratio 11.11 Glucose 117 H (74-105) mg/dL Calcium 8.8 (8.4-10.2) mg/dl Magnesium (1.8-2.5) mg/dL Total Bilirubin 0.3 (0.2-1.0) mg/dL AST 28 (10-42) IU/L ALT 27 (10-60) IU/L Alkaline Phosphatase 71 (42-121) IU/L Ammonia (11-35) umol/L Total Protein 7.8 (6.7-8.2) g/dl Albumin 4.1 (3.2-5.5) g/dl Globulin 3.7 Albumin/Globulin Ratio 1.11 Amylase (28-100) U/L Lipase (22-51) U/L Urine Color Light yellow (YELLOW) Urine Appearance Clear (CLEAR) Urine pH 6.0 (5.0-9.0) Ur Specific [place] <= 1.005 (1.005-1.030) Urine Protein Negative (NEGATIVE) Urine Glucose (UA) Negative (NEGATIVE) Urine Ketones Negative (NEGATIVE) Urine Occult Blood Negative (NEGATIVE) Urine Nitrite Negative (NEGATIVE) Urine Bilirubin Negative (NEGATIVE) Urine Urobilinogen 0.2 (0.2-1.0) mg/dL Ur Leukocyte Esterase Negative (NEGATIVE) Urine RBC 0-5 /HPF Urine WBC 0-5 (0-5/HPF) /HPF Ur Epithelial Cells Rare /HPF Amorphous Sediment Few (0/HPF) /HPF Urine Bacteria Few (0-FEW/HPF) /HPF Urine Opiates Screen Negative (NEGATIVE) Ur Oxycodone Screen Negative (NEGATIVE) Urine Methadone Screen Negative (NEGATIVE) Acetaminophen Ur Barbiturates Screen Negative (NEGATIVE) U Tricyclic Antidepress Negative (NEGATIVE) Ur Phencyclidine Scrn Negative (NEGATIVE) Ur Amphetamine Screen Negative (NEGATIVE) U Methamphetamines Scrn Negative (NEGATIVE) Urine MDMA Screen Negative (NEGATIVE) U Benzodiazepines Scrn Negative (NEGATIVE) Urine Cocaine Screen Negative (NEGATIVE) U Marijuana (THC) Screen Negative (NEGATIVE) Ethyl Alcohol mg/dL Meds: Medications Generic Name Dose Route Start Last Admin Trade Name Maryam PRN Reason Stop Dose Admin Levetiracetam 500 mg/ Sodium 105 mls @ 400 mls/hr 03/08/18 00:13 Chloride IV 03/08/18 00:27 ONETIME ONE Discontinued Medications Generic Name Dose Route Start Last Admin Trade Name Maryam PRN Reason Stop Dose Admin Lorazepam 2 mg 03/07/18 22:03 03/07/18 22:10 Ativan IVPUSH 03/07/18 22:04 2 mg ONETIME ONE Administration Departure - Departure Time of Disposition: 00:18 Disposition: Home, Self-Care 01 Condition: Fair Clinical Impression: Seizure - Discharge Information *PRESCRIPTION DRUG MONITORING PROGRAM REVIEWED*: Not Applicable *COPY OF PRESCRIPTION DRUG MONITORING REPORT IN PATIENT MAC: Not Applicable Instructions: Seizure, Adult, [id number] Forms: ED Department Discharge Care Plan Goals: The patient was advised of the examination, lab and CT results during the visit. The patient was given an IV dose of Ativan and Keppra while in the ED. The patient was encouraged to follow-up with her primary care facility for continued evaluation and further treatment. The patient was encouraged to avoid alcohol. It the patient has any additional symptoms or concerns, the patient should follow-up with her primary care facility or return to the emergency department. - My Orders Last 24 Hours: My Active Orders 03/07/18 21:54 DRUG SCREEN URINE BIORAD [URCHEM] Stat UA W/MICROSCOPIC [URIN] Stat 03/08/18 00:13 levETIRAcetam [Keppra] 500 mg Sodium Chloride 0.9% [Normal Saline] 100 ml IV ONETIME - Assessment/Plan Last 24 Hours: My Active Orders 03/07/18 21:54 DRUG SCREEN URINE BIORAD [URCHEM] Stat UA W/MICROSCOPIC [URIN] Stat 03/08/18 00:13 levETIRAcetam [Keppra] 500 mg Sodium Chloride 0.9% [Normal Saline] 100 ml IV ONETIME
[2018-03-07 22:39] LABS: ANION GAP 14.4; CHLORIDE,CL 104 mmol/L (101-111); SODIUM,NA 138 mmol/L (135-145)
[2018-03-07 22:45] LABS: ACETAMINOPHEN < 10
[2018-03-08] MEDS ORDERED: levETIRAcetam 500 MG in Sodium Chloride 0.9% 100 ML IV ONE (00:13)
[2018-03-08 00:56] VITALS: BP 118/81
== END 2018-03-08 00:40 | disposition home or self-care (01) ==
LOC: DL.ED 21:12
DX: R56.9 Unspecified convulsions (principal); F10.129 Alcohol abuse with intoxication, unspecified; Y90.6 Blood alcohol level of 120-199 mg/100 ml; F41.9 Anxiety disorder, unspecified; F32.9 Major depressive disorder, single episode, unspecified; Z79.899 Other long term (current) drug therapy; Z88.8 Allergy status to other drugs, medicaments and biological substances
CPT/HCPCS: 36415; 70450; 80053; 80305; 81001; 82140; 82150; 83690; 83735; 85025; 96374; 96375; 99284; G0480; J1953; J2060; J7050

== ENCOUNTER 2018-12-10 20:20 | Emergency (ER) | payer MEDICARE, MEDICAID ==
[2018-12-10 20:26] VITALS: BP 114/89
--- NOTE | 2018-12-10 20:46 | EDM.PDOC ---
ED HPI GENERAL MEDICAL PROBLEM - General Chief Complaint: General Stated Complaint: AMBULANCE Time Seen by Provider: 12/10/18 20:40 Source of Information: Reports: Patient History Limitations: Reports: No Limitations - History of Present Illness INITIAL COMMENTS - FREE TEXT/NARRATIVE: pt states feels fine and doesn't want any test done and will sign AMA. states she has been having dizzy spells on-off for long time and will quickly sit down so she won't fall and break her hip or crack her head. this time it was the same but she lives in apartment fill with old people who will panic at everything and they called ambulance. denies drinking and would like to go home to rest. denies head/neck pain, denies CP/SOB. - Related Data Allergies Allergy/AdvReac Type Severity Reaction Status Date / Time topiramate [From Topamax] Allergy Cannot Verified 12/11/18 14:06 Remember risperidone [From Risperdal] AdvReac Fever Verified 12/11/18 14:06 Home Meds: Home Meds traZODone 300 mg PO BEDTIME 06/19/15 [History] DULoxetine [Cymbalta] 60 mg PO BID 06/30/16 [History] hydrOXYzine Pamoate [Vistaril] 25 mg PO Q8H PRN 06/30/16 [History] Gabapentin [Neurontin] 600 mg PO TID 10/03/16 [History] Pantoprazole [ProTONIX] 40 mg PO DAILY 07/27/18 [History] QUEtiapine [SEROquel] 300 mg PO BEDTIME 07/27/18 [History] Past Medical History HEENT History: Reports: Impaired Vision Gastrointestinal History: Reports: GERD, Other (See Below) 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 [employer] History: Reports: Other (See Below) Other [employer] History: hysterectomy, still has ovaries however no uterus. "vaginal mass" Musculoskeletal History: Reports: Arthritis, Back Pain, Chronic, Fibromyalgia Neurological History: Reports: Other (See Below) Other Neuro History: neck surgery. Neuropathy Psychiatric History: Reports: Anxiety, Depression - Past Surgical History Female Surgical History: Reports: Hysterectomy Musculoskeletal Surgical History: Reports: Arthroscopic Knee, Knee Replacement, Shoulder Surgery Social & Family History - Family History Family Medical History: Noncontributory - Tobacco Use Smoking Status *Q: Current Status Unknown - Caffeine Use Caffeine Use: Reports: Coffee - Recreational Drug Use Recreational Drug Use: Yes Recreational Drug Type: Reports: Marijuana/Hashish ED ROS GENERAL - Review of Systems Review Of Systems: ROS reveals no pertinent complaints other than HPI. ED EXAM, GENERAL - Physical Exam Exam: See Below Exam Limited By: No Limitations General Appearance: Alert, WD/WN, No Apparent Distress, Other (pleasant & talkative) Eye Exam: Bilateral Eye: PERRL (pupils ess ER @ 4mm) Ears: Normal External Exam, Normal Canal, Hearing Grossly Normal, Normal TMs Nose: Normal Inspection Throat/Mouth: Normal Voice, No Airway Compromise Head: Atraumatic Neck: Non-Tender, Full Range of Motion Respiratory/Chest: No Respiratory Distress, Lungs Clear Cardiovascular: Regular Rate, Rhythm GI/Abdominal: Soft, Non-Tender Neurological: Alert, Oriented, Normal Cognition, Normal Gait, No Motor/Sensory Deficits Psychiatric: Normal Affect, Normal Mood Skin Exam: Warm, Dry, Normal Color Lymphatic: No Adenopathy Course - Vital Signs Last Recorded V/S: Last Vital Signs Temp 36.4 C 12/10/18 20:24 Pulse 108 H 12/10/18 20:24 Resp 19 12/10/18 20:24 BP 114/89 12/10/18 20:24 Pulse Ox 98 12/10/18 20:24 Departure - Departure Time of Disposition: 20:45 Disposition: Against Medical Advice 07 Condition: Fair Clinical Impression: Dizziness - Discharge Information Referrals: Yamileth Sal NP [Primary Care Provider] - Forms: ED Department Discharge
== END 2018-12-10 20:49 | disposition left against medical advice (07) ==
LOC: DL.ED 20:20
DX: R42 Dizziness and giddiness (principal); K21.9 Gastro-esophageal reflux disease without esophagitis; F41.9 Anxiety disorder, unspecified; F32.9 Major depressive disorder, single episode, unspecified; Z88.8 Allergy status to other drugs, medicaments and biological substances; Z79.899 Other long term (current) drug therapy
CPT/HCPCS: 99283

== ENCOUNTER 2018-12-11 13:40 | Emergency (ER) | payer MEDICARE, MEDICAID ==
[2018-12-11 14:23] VITALS: BP 129/93
== END 2018-12-11 15:44 | disposition left against medical advice (07) ==
LOC: DL.ED 13:40
DX: Z53.21 Procedure and treatment not carried out due to patient leaving prior to being seen by health care provider (principal)

== ENCOUNTER 2019-01-09 14:21 | Emergency (ER) | payer MEDICARE, MEDICAID ==
[2019-01-09] MEDS ORDERED: Acetaminophen/HYDROcodone 325-5 MG Tab PO ONE (14:22)
[2019-01-09 14:50] VITALS: BP 121/60
--- NOTE | 2019-01-09 15:02 | EDM.PDOC ---
ED HPI GENERAL MEDICAL PROBLEM - General Chief Complaint: Skin Complaint Stated Complaint: infected cyst Time Seen by Provider: 01/09/19 14:50 Source of Information: Reports: Patient History Limitations: Reports: No Limitations - History of Present Illness INITIAL COMMENTS - FREE TEXT/NARRATIVE: This 58 yo female patient reports to the ED with increased vaginal pain and urinary frequency. The patient reports she has been experiencing increased pain over the past week. The patient reports she has an appointment in the clinic tomorrow morning at 0830. The patient reports she has had similar symptoms in the past due to a Bartholin's cyst that was drained by Dr. Moore from [place]. The patient reports she attempted to get into the clinic last week, but could not get an appointment. The patient reports she has been taking Motrin for her symptoms, but has not had any relief. The patient reports she could not take the pain anymore and came to the ED. Duration: Week(s):, Constant, Getting Worse Location: Reports: Other Quality: Reports: Ache, Burning, Sharp Severity: Severe Improves with: Reports: None Worsens with: Reports: None Context: Reports: Other Associated Symptoms: Reports: No Other Symptoms Treatments SVP: Reports: NSAIDS, Other (see below) Other Treatments SVP: sitz bath Perineal Area Pain Score (Numeric/FACES): 7 - Related Data Allergies Allergy/AdvReac Type Severity Reaction Status Date / Time topiramate [From Topamax] Allergy Cannot Verified 01/09/19 15:08 Remember risperidone [From Risperdal] AdvReac Fever Verified 01/09/19 15:08 Home Meds: Home Meds traZODone 300 mg PO BEDTIME 06/19/15 [History] DULoxetine [Cymbalta] 60 mg PO BID 06/30/16 [History] Gabapentin [Neurontin] 600 mg PO TID 10/03/16 [History] QUEtiapine [SEROquel] 300 mg PO BEDTIME 07/27/18 [History] Past Medical History HEENT History: Reports: Impaired Vision Gastrointestinal History: Reports: GERD, Other (See Below) 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 GLUE SPREADER 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 bartholin cyst Musculoskeletal History: Reports: Arthritis, Back Pain, Chronic, Fibromyalgia Neurological History: Reports: Seizure, Other (See Below) Other Neuro History: Neuropathy Psychiatric History: Reports: Addiction, Anxiety, Depression - Past Surgical History Female Surgical History: Reports: Hysterectomy Neurological Surgical History: Reports: Spinal Fusion Musculoskeletal Surgical History: Reports: Arthroscopic Knee, Knee Replacement, Shoulder Surgery Social & Family History - Family History Family Medical History: Noncontributory - Tobacco Use Smoking Status *Q: Never Smoker Second Hand Smoke Exposure: No - Caffeine Use Caffeine Use: Reports: Coffee - Recreational Drug Use Recreational Drug Use: Yes Drug Use in Last 12 Months: Yes Recreational Drug Type: Reports: Marijuana/Hashish ED ROS GENERAL - Review of Systems Review Of Systems: ROS reveals no pertinent complaints other than HPI. ED EXAM, SKIN/RASH Exam: See Below Exam Limited By: No Limitations General Appearance: Alert, WD/WN, Moderate Distress Eye Exam: Bilateral Eye: EOMI, Normal Inspection, PERRL Ears: Normal External Exam, Normal Canal, Hearing Grossly Normal, Normal TMs Nose: Normal Inspection, Normal Mucosa, No Blood Throat/Mouth: Normal Inspection, Normal Lips, Normal Teeth, Normal Gums, Normal Oropharynx, Normal Voice, No Airway Compromise Head: Atraumatic, Normocephalic Neck: Normal Inspection, Supple, Non-Tender, Full Range of Motion Respiratory/Chest: No Respiratory Distress, Lungs Clear, Normal Breath Sounds, No Accessory Muscle Use, Chest Non-Tender Cardiovascular: Normal Peripheral Pulses, Regular Rate, Rhythm, No Edema, No Gallop, No JVD, No Murmur, No Rub GI/Abdominal: Normal Bowel Sounds, Soft, Non-Tender, No Organomegaly, No Distention, No Abnormal Bruit, No Mass (Female) Exam: Normal External Exam, Other (The patient reports intense pain with palpation. There is no outward appearance of a cyst or abscess. There is no current drainage from the area. ) Rectal (Female) Exam: Deferred Back Exam: Normal Inspection, Full Range of Motion, NT Extremities: Normal Inspection, Normal Range of Motion, Non-Tender, No Pedal Edema, Normal Capillary Refill Neurological: Alert Psychiatric: Normal Affect, Normal Mood Skin: Warm, Dry, Intact, Normal Color, No Rash Lymphatic: No Adenopathy Course - Vital Signs Last Recorded V/S: Last Vital Signs Temp 37.2 C 01/09/19 14:38 Pulse 123 H 01/09/19 14:38 Resp 16 01/09/19 14:38 BP 121/60 01/09/19 14:38 Pulse Ox 98 01/09/19 14:38 - Orders/Labs/Meds Orders: Active Orders 24 hr Category Date Time Status COMPREHENSIVE METABOLIC PN,CMP [CHEM] Urgent Lab 01/09/19 14:48 Ordered CULTURE URINE [RM] Stat Lab 01/09/19 15:03 Received Labs: Laboratory Tests 01/09/19 01/09/19 01/09/19 Range/Units 14:57 15:03 15:03 WBC 6.1 (5.0-10.0) 10^3/uL RBC 4.04 L (4.2-5.4) 10^6/uL Hgb 12.0 (12.0-16.0) g/dL Hct 36.0 L (37.0-47.0) % MCV 89.1 (80-100) fL MCH 29.7 (27.0-34.0) pg MCHC 33.3 (33.0-35.0) g/dL Plt Count 286 (150-450) 10^3/uL Neut % (Auto) 48.5 (42.2-75.2) % Lymph % (Auto) 40.0 (20.5-50.1) % [place] % (Auto) 9.5 H (2-8) % Eos % (Auto) 1.5 (1.0-3.0) % Baso % (Auto) 0.5 (0.0-1.0) % Urine Color Yellow (YELLOW) Urine Appearance Clear (CLEAR) Urine pH 7.0 (5.0-9.0) Ur Specific Herscher 1.015 (1.005-1.030) Urine Protein Negative (NEGATIVE) Urine Glucose (UA) Negative (NEGATIVE) Urine Ketones Negative (NEGATIVE) Urine Occult Blood Negative (NEGATIVE) Urine Nitrite Negative (NEGATIVE) Urine Bilirubin Negative (NEGATIVE) Urine Urobilinogen 0.2 (0.2-1.0) mg/dL Ur Leukocyte Esterase Small H (NEGATIVE) Urine RBC 0-5 /HPF Urine WBC 0-5 (0-5/HPF) /HPF Ur Epithelial Cells Few (NOT SEEN) /HPF Urine Bacteria Few (0-FEW/HPF) /HPF Urine Opiates Screen Negative (NEGATIVE) Ur Oxycodone Screen Negative (NEGATIVE) Urine Methadone Screen Negative (NEGATIVE) Ur Barbiturates Screen Negative (NEGATIVE) U Tricyclic Antidepress Negative (NEGATIVE) Ur Phencyclidine Scrn Negative (NEGATIVE) Ur Amphetamine Screen Negative (NEGATIVE) U Methamphetamines Scrn Negative (NEGATIVE) Urine MDMA Screen Negative (NEGATIVE) U Benzodiazepines Scrn Negative (NEGATIVE) Urine Cocaine Screen Negative (NEGATIVE) U Marijuana (THC) Screen Negative (NEGATIVE) Departure - Departure Time of Disposition: 15:34 Disposition: Home, Self-Care 01 Condition: Fair Clinical Impression: Bartholin cyst - Discharge Information *PRESCRIPTION DRUG MONITORING PROGRAM REVIEWED*: Not Applicable *COPY OF PRESCRIPTION DRUG MONITORING REPORT IN PATIENT MAC: Not Applicable Instructions: Bartholin's Cyst or Abscess, [id number] Forms: ED Department Discharge Care Plan Goals: The patient was advised of the examination and lab results during the visit. The patient was given an oral dose of Bactrim while in the ED. The patient was discharged with Anson (5/325) #2 to take 1 by mouth every 6 hours. The patient was also give a script for Bactrim DS to take 1 by mouth 2 times per day for 7 days. If the patient has any additional symptoms or concerns, the patient should either return to the emergency department or visit her primary care facility. - My Orders Last 24 Hours: My Active Orders 01/09/19 14:48 COMPREHENSIVE METABOLIC PN,CMP [CHEM] Urgent 01/09/19 15:03 CULTURE URINE [RM] Stat - Assessment/Plan Last 24 Hours: My Active Orders 01/09/19 14:48 COMPREHENSIVE METABOLIC PN,CMP [CHEM] Urgent 01/09/19 15:03 CULTURE URINE [RM] Stat
[2019-01-09] MEDS ORDERED: Sulfamethoxazole/Trimethoprim 800-160 MG Tab PO ONE (15:32)
[2019-01-09 15:33] LABS: ANION GAP 12.7; CHLORIDE,CL 107 mmol/L (101-111); SODIUM,NA 139 mmol/L (135-145)
[2019-01-09] MEDS ORDERED: Acetaminophen/HYDROcodone 325-5 MG Tab ONE (15:36)
== END 2019-01-09 15:45 | disposition home or self-care (01) ==
LOC: DL.ED 14:21
DX: N75.0 Cyst of Bartholin's gland (principal); F41.9 Anxiety disorder, unspecified; F32.9 Major depressive disorder, single episode, unspecified; M19.90 Unspecified osteoarthritis, unspecified site; Z79.899 Other long term (current) drug therapy; Z88.8 Allergy status to other drugs, medicaments and biological substances; Z90.710 Acquired absence of both cervix and uterus; Z98.1 Arthrodesis status
CPT/HCPCS: 36415; 80053; 80305; 81001; 85025; 87086; 99283; A9270

== ENCOUNTER 2019-01-09 21:13 | Emergency (ER) | payer MEDICARE, MEDICAID ==
[2019-01-09] MEDS ORDERED: Acetaminophen/oxyCODONE 325-5 MG Tab PO ONE ×2 (21:14→22:10)
[2019-01-09] MEDS ORDERED: Ketorolac 30 MG/ML SDV IM ONE (22:10)
--- NOTE | 2019-01-09 22:18 | EDM.PDOC ---
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 Paitent seen earlier for same but medications not helping. Has appointment for same upcoming with [facility]. Has had similar cyst in vaginal area drained surgically. No fever or chills. Unable to find comfortable position. No difficulty with urination. BM yesterday. Increased pain with straining. Vaginal Pain Score (Numeric/FACES): 9 - Related Data Allergies Allergy/AdvReac Type Severity Reaction Status Date / Time topiramate [From Topamax] Allergy Cannot Verified 01/09/19 21:29 Remember risperidone [From Risperdal] AdvReac Fever Verified 01/09/19 21:29 Home Meds: Home Meds traZODone 300 mg PO BEDTIME 06/19/15 [History] DULoxetine [Cymbalta] 60 mg PO BID 06/30/16 [History] Gabapentin [Neurontin] 600 mg PO TID 10/03/16 [History] QUEtiapine [SEROquel] 300 mg PO BEDTIME 07/27/18 [History] Past Medical History HEENT History: Reports: Impaired Vision Gastrointestinal History: Reports: GERD, Other (See Below) 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 SCRAPER OPERATOR 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 bartholin cyst Musculoskeletal History: Reports: Arthritis, Back Pain, Chronic, Fibromyalgia Neurological History: Reports: Seizure, Other (See Below) Other Neuro History: Neuropathy Psychiatric History: Reports: Addiction, Anxiety, Depression - Past Surgical History Female Surgical History: Reports: Hysterectomy Neurological Surgical History: Reports: Spinal Fusion Musculoskeletal Surgical History: Reports: Arthroscopic Knee, Knee Replacement, Shoulder Surgery Social & Family History - Family History Family Medical History: Noncontributory - Tobacco Use Smoking Status *Q: Never Smoker Second Hand Smoke Exposure: No - Caffeine Use Caffeine Use: Reports: Coffee, Soda - Recreational Drug Use Recreational Drug Use: Yes Recreational Drug Type: Reports: Marijuana/Hashish Recreational Drug Use Frequency: Socially ED ROS GENERAL - Review of Systems Review Of Systems: ROS reveals no pertinent complaints other than HPI. ED EXAM, RENAL/ - Physical Exam Exam: See Below Exam Limited By: No Limitations General Appearance: Alert, Moderate Distress Eye Exam: Bilateral Eye: EOMI Ears: Normal External Exam Nose: Normal Inspection Throat/Mouth: Normal Inspection Head: Atraumatic, Sinus Tenderness Respiratory/Chest: No Respiratory Distress Cardiovascular: Normal Peripheral Pulses, Regular Rate, Rhythm (Female) Exam: Normal External Exam, Other (swelling posterir vaginal wall, Tender with palpation, ). No: Vaginal Bleeding, Vaginal Lesions Back Exam: Full Range of Motion Extremities: Normal Inspection Neurological: Alert, Oriented, Normal Cognition Skin Exam: Warm, Dry, Intact, Normal Color Course - Vital Signs Last Recorded V/S: Last Vital Signs Temp 96.4 F 01/09/19 22:28 Pulse 89 01/09/19 22:28 Resp 18 01/09/19 22:28 BP 113/76 01/09/19 22:28 Pulse Ox 99 01/09/19 22:28 - Orders/Labs/Meds Meds: Medications Discontinued Medications Generic Name Dose Route Start Last Admin Trade Name Maryam PRN Reason Stop Dose Admin Ketorolac Tromethamine 30 mg 01/09/19 22:10 01/09/19 22:16 Toradol IM 01/09/19 22:11 30 mg ONETIME ONE Administration Oxycodone/Acetaminophen 1 tab 01/09/19 22:10 01/09/19 22:27 Percocet 325-5 Mg PO 01/09/19 22:11 1 tab ONETIME ONE Administration Oxycodone/Acetaminophen Confirm 01/09/19 22:22 01/09/19 22:26 Percocet 325-5 Mg Administered 01/09/19 22:23 Not Given Dose 1 tab .ROUTE .STK-MED ONE Oxycodone/Acetaminophen 1 tab 01/09/19 21:14 Percocet 325-5 Mg PO 01/09/19 21:15 .STK-MED ONE Departure - Departure Time of Disposition: 22:15 Disposition: Home, Self-Care 01 Condition: Good Clinical Impression: Vaginal pain, Anxiety - Discharge Information *PRESCRIPTION DRUG MONITORING PROGRAM REVIEWED*: Yes *COPY OF PRESCRIPTION DRUG MONITORING REPORT IN PATIENT MAC: No Instructions: Pelvic Pain, Female Referrals: Yamileth Sal NP [Primary Care Provider] - Forms: ED Department Discharge Additional Instructions: follow up in am with scheduled appointment ibuprofen 600mg every 6 hours as needed percocet 5/325 one at 4 am ice pack to pelvic area
[2019-01-09] MEDS ORDERED: Acetaminophen/oxyCODONE 325-5 MG Tab ONE (22:22)
[2019-01-09 22:31] VITALS: BP 113/76; PULSE 89
== END 2019-01-09 22:28 | disposition home or self-care (01) ==
LOC: DL.ED 21:13
DX: R10.2 Pelvic and perineal pain (principal); F41.9 Anxiety disorder, unspecified; F32.9 Major depressive disorder, single episode, unspecified; Z90.710 Acquired absence of both cervix and uterus; Z98.1 Arthrodesis status; Z88.8 Allergy status to other drugs, medicaments and biological substances; N75.0 Cyst of Bartholin's gland; M19.90 Unspecified osteoarthritis, unspecified site; Z79.899 Other long term (current) drug therapy
CPT/HCPCS: 36415; 80053; 80305; 81001; 85025; 87086; 96372; 99283; A9270; J1885

== ENCOUNTER 2020-03-22 09:12 | Emergency (ER) | payer MEDICARE, MEDICAID ==
[2020-03-22] MEDS ORDERED: Sodium Chloride 0.9% 10 ML Syringe FLUSH PRN (09:22)
--- NOTE | 2020-03-22 09:22 | EDM.PDOC ---
ED HPI GENERAL MEDICAL PROBLEM - General Chief Complaint: Gastrointestinal Problem Stated Complaint: DIAREHHIE, VOMITING, COVID EXPOSURE Time Seen by Provider: 03/22/20 09:21 Source of Information: Reports: Patient, Old Records, Provider (Prateek BRUCE from [facility]), RN, RN Notes Reviewed - History of Present Illness INITIAL COMMENTS - FREE TEXT/NARRATIVE: Pt sent from [facility] with c/o one weeks duration of nausea, vomiting, and diarrhea. Pt states she is unable to keep down any food or liquid. She was exposed to COVID about one week ago as well. She denies cough or shortness of breath. Pt states that this morning she developed a migraine headache. She has a long Hx of migraines with similar symptoms. She reports the headache began on the left but is now all across the front and top of the head. She reports photophobia, and intense nausea. Onset: Gradual Duration: Week(s): (1) Location: Reports: Abdomen Severity: Severe Improves with: Reports: None Worsens with: Reports: Eating Context: Reports: Sick Contact Associated Symptoms: Reports: No Other Symptoms Left Knee Pain Score (Numeric/FACES): 8 - Related Data Allergies Allergy/AdvReac Type Severity Reaction Status Date / Time topiramate [From Topamax] Allergy Cannot Verified 03/22/20 09:21 Remember risperidone [From Risperdal] AdvReac Fever Verified 03/22/20 09:21 Home Meds: Home Meds traZODone 300 mg PO BEDTIME 06/19/15 [History] DULoxetine [Cymbalta] 60 mg PO BID 06/30/16 [History] Gabapentin [Neurontin] 600 mg PO TID 10/03/16 [History] QUEtiapine [SEROquel] 300 mg PO BEDTIME 07/27/18 [History] Past Medical History HEENT History: Reports: Impaired Vision Gastrointestinal History: Reports: GERD, Other (See Below) 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 DISTRIBUTION SPEC History: Reports: Other (See Below) Other DISTRIBUTION SPEC History: hysterectomy, still has ovaries however no uterus. bartholin cyst Musculoskeletal History: Reports: Arthritis, Back Pain, Chronic, Fibromyalgia Neurological History: Reports: Seizure, Other (See Below) Other Neuro History: Neuropathy Psychiatric History: Reports: Addiction, Anxiety, Depression, Psych Hospitalization(s), Suicidal Ideation Endocrine/Metabolic History: Reports: Obesity/BMI 30+ - Past Surgical History Female Surgical History: Reports: Hysterectomy Neurological Surgical History: Reports: Spinal Fusion Musculoskeletal Surgical History: Reports: Arthroscopic Knee, Knee Replacement, Shoulder Surgery Social & Family History - Family History Family Medical History: Noncontributory - Caffeine Use Caffeine Use: Reports: Coffee, Soda - Recreational Drug Use Recreational Drug Use: Yes Recreational Drug Type: Reports: Marijuana/Hashish ED ROS GENERAL - Review of Systems Review Of Systems: Comprehensive ROS is negative, except as noted in HPI. ED EXAM, GI/ABD - Physical Exam Exam: See Below Exam Limited By: No Limitations General Appearance: Alert, WD/WN, Mild Distress, Active Emesis Eyes: Bilateral: EOMI (No scleral icterus, positive photophobia) Ears: Normal External Exam, Hearing Grossly Normal Nose: Normal Inspection, No Blood Throat/Mouth: Normal Lips, Normal Oropharynx, Normal Voice, No Airway Compromise, Other (Dry oral membranes) Head: Atraumatic, Normocephalic Neck: Normal Inspection, Supple, Non-Tender, Full Range of Motion Respiratory/Chest: No Respiratory Distress, Lungs Clear, Normal Breath Sounds, No Accessory Muscle Use, Chest Non-Tender Cardiovascular: Normal Peripheral Pulses, Regular Rate, Rhythm, No Edema, No Gallop, No JVD, No Murmur, No Rub GI/Abdominal Exam: Normal Bowel Sounds, Soft, No Organomegaly, No Distention, No Abnormal Bruit, No Mass, Tender (mild generalized abdominal tenderness). No: Guarding, Rigid, Rebound (Female) Exam: Deferred Rectal (Female) Exam: Deferred Back Exam: Normal Inspection Extremities: Normal Inspection, Normal Range of Motion, Non-Tender, Normal Cap illary Refill, No Pedal Edema Neurological: Alert, Oriented, CN II-XII Intact, Normal Cognition, Normal Gait, No Motor/Sensory Deficits Psychiatric: Normal Affect, Normal Mood Skin Exam: Warm, Dry, Intact, Normal Color, No Rash Course - Vital Signs Last Recorded V/S: Last Vital Signs Temp 98.1 F 03/22/20 09:29 Pulse 69 03/22/20 09:29 Resp 16 03/22/20 09:29 BP 112/75 03/22/20 09:29 Pulse Ox 99 03/22/20 09:29 - Orders/Labs/Meds Orders: Active Orders 24 hr Category Date Time Status Peripheral IV Care [RC] . DIRECTED Care 03/22/20 09:23 Active DRUG SCREEN URINE BIORAD [URCHEM] Stat Lab 03/22/20 09:22 Ordered UA RFX DIANNA AND CULT IF INDIC [URIN] Stat Lab 03/22/20 09:22 Ordered Sodium Chloride 0.9% [Saline Flush] Med 03/22/20 09:22 Active 10 ml FLUSH ASDIRECTED PRN Peripheral IV Insertion Adult [OM.PC] Stat Oth 03/22/20 09:22 Ordered Medication Orders Sodium Chloride (Saline Flush) 10 ml FLUSH ASDIRECTED PRN PRN Reason: Keep Vein Open Last Admin: 03/22/20 09:39 Dose: 10 ml Documented by: KEELEY Labs: Laboratory Tests 03/22/20 03/22/20 03/22/20 Range/Units 09:27 09:27 09:27 WBC 8.9 (5.0-10.0) 10^3/uL RBC 4.21 (4.2-5.4) 10^6/uL Hgb 12.9 (12.0-16.0) g/dL Hct 37.8 (37.0-47.0) % MCV 89.8 (80-100) fL MCH 30.6 (27.0-34.0) pg MCHC 34.1 (33.0-35.0) g/dL Plt Count 328 (150-450) 10^3/uL Neut % (Auto) 60.5 (42.2-75.2) % Lymph % (Auto) 28.8 (20.5-50.1) % [place]val % (Auto) 8.6 H (2-8) % Eos % (Auto) 1.5 (1.0-3.0) % Baso % (Auto) 0.6 (0.0-1.0) % Sodium 136 (136-145) mmol/L Potassium 4.0 (3.5-5.1) mmol/L Chloride 99 (98-107) mmol/L Carbon Dioxide 27 (21-32) mmol/L Anion Gap 14.0 H (7-13) mEq/L BUN 14 (7-18) mg/dL Creatinine 1.03 H (0.55-1.02) mg/dL Est Cr Clr Drug Dosing TNP Estimated GFR (MDRD) 55 BUN/Creatinine Ratio 13.6 (No establ ref range) Glucose 94 (74-99) mg/dL Lactic Acid 1.1 (0.4-2.0) mmol/L Calcium 9.4 (8.5-10.1) mg/dL Total Bilirubin 0.4 (0.2-1.0) mg/dL AST 21 (15-37) U/L ALT 30 (14-59) U/L Alkaline Phosphatase 81 (46-116) U/L C-Reactive Protein < 0.2 (0.0-0.9) mg/dL Total Protein 8.3 H (6.4-8.2) g/dL Albumin 4.0 (3.4-5.0) g/dL Globulin 4.3 Albumin/Globulin Ratio 0.9 Amylase 51 (25-115) U/L Lipase 136 (73-393) U/L COVID-19 (ELIZABETH) (NEGATIVE) 03/22/20 Range/Units 09:27 WBC (5.0-10.0) 10^3/uL RBC (4.2-5.4) 10^6/uL Hgb (12.0-16.0) g/dL Hct (37.0-47.0) % MCV (80-100) fL MCH (27.0-34.0) pg MCHC (33.0-35.0) g/dL Plt Count (150-450) 10^3/uL Neut % (Auto) (42.2-75.2) % Lymph % (Auto) (20.5-50.1) % Duval % (Auto) (2-8) % Eos % (Auto) (1.0-3.0) % Baso % (Auto) (0.0-1.0) % Sodium (136-145) mmol/L Potassium (3.5-5.1) mmol/L Chloride (98-107) mmol/L Carbon Dioxide (21-32) mmol/L Anion Gap (7-13) mEq/L BUN (7-18) mg/dL Creatinine (0.55-1.02) mg/dL Est Cr Clr Drug Dosing Estimated GFR (MDRD) BUN/Creatinine Ratio (No establ ref range) Glucose (74-99) mg/dL Lactic Acid (0.4-2.0) mmol/L Calcium (8.5-10.1) mg/dL Total Bilirubin (0.2-1.0) mg/dL AST (15-37) U/L ALT (14-59) U/L Alkaline Phosphatase (46-116) U/L C-Reactive Protein (0.0-0.9) mg/dL Total Protein (6.4-8.2) g/dL Albumin (3.4-5.0) g/dL Globulin Albumin/Globulin Ratio Amylase (25-115) U/L Lipase (73-393) U/L COVID-19 (ELIZABETH) Negative (NEGATIVE) Meds: Medications Generic Name Dose Route Start Last Admin Trade Name Freq PRN Reason Stop Dose Admin Sodium Chloride 10 ml 03/22/20 09:22 03/22/20 09:39 Saline Flush FLUSH 10 ml ASDIRECTED PRN Administration Keep Vein Open Discontinued Medications Generic Name Dose Route Start Last Admin Trade Name Freq PRN Reason Stop Dose Admin Sodium Chloride 1,000 mls @ 999 mls/hr 03/22/20 09:23 03/22/20 09:37 Normal Saline IV 03/22/20 10:23 999 mls/hr .BOLUS ONE Administration Sodium Chloride 1,000 mls @ 999 mls/hr 03/22/20 10:13 03/22/20 10:38 Normal Saline IV 03/22/20 11:13 999 mls/hr .BOLUS ONE Administration Ketorolac Tromethamine 30 mg 03/22/20 10:13 03/22/20 10:21 Toradol IVPUSH 03/22/20 10:14 30 mg ONETIME ONE Administration Ondansetron HCl 4 mg 03/22/20 09:23 03/22/20 09:37 Zofran IV 03/22/20 09:24 4 mg ONETIME ONE Administration Promethazine HCl 25 mg 03/22/20 10:12 03/22/20 10:21 Phenergan IM 03/22/20 10:13 25 mg ONETIME ONE Administration Departure - Departure Time of Disposition: 11:21 Disposition: Home, Self-Care 01 Condition: Good Clinical Impression: Gastroenteritis, Migraine, Dehydration - Discharge Information *PRESCRIPTION DRUG MONITORING PROGRAM REVIEWED*: Not Applicable *COPY OF PRESCRIPTION DRUG MONITORING REPORT IN PATIENT MAC: Not Applicable Instructions: Viral Gastroenteritis, Adult, Dehydration, Adult, [id number], Migraine Headache, [id number] Forms: ED Department Discharge Additional Instructions: Rx: Promethazine 25mg Clear liquid diet until nausea and vomiting resolves, then advance to soft bland diet as tolerated. Follow up in clinic if not improving as expected. Sepsis Event Note (ED) - Focused Exam Vital Signs: Vital Signs Temp Pulse Resp BP Pulse Ox 03/22/20 09:29 98.1 F 69 16 112/75 99 - My Orders Last 24 Hours: My Active Orders 03/22/20 09:22 DRUG SCREEN URINE BIORAD [URCHEM] Stat UA RFX DIANNA AND CULT IF INDIC [URIN] Stat Sodium Chloride 0.9% [Saline Flush] 10 ml FLUSH ASDIRECTED PRN Peripheral IV Insertion Adult [OM.PC] Stat 03/22/20 09:23 Peripheral IV Care [RC] . DIRECTED - Assessment/Plan Last 24 Hours: My Active Orders 03/22/20 09:22 DRUG SCREEN URINE BIORAD [URCHEM] Stat UA RFX DIANNA AND CULT IF INDIC [URIN] Stat Sodium Chloride 0.9% [Saline Flush] 10 ml FLUSH ASDIRECTED PRN Peripheral IV Insertion Adult [OM.PC] Stat 03/22/20 09:23 Peripheral IV Care [RC] . DIRECTED
[2020-03-22] MEDS ORDERED: Ondansetron 4 MG/2 ML SDV IV ONE (09:23)
[2020-03-22] MEDS ORDERED: Sodium Chloride 0.9% 1,000 ML IV ONE ×2 (09:23→10:13)
[2020-03-22 09:31] VITALS: BP 112/75; PULSE 69
[2020-03-22 09:56] LABS: CHLORIDE,CL 99 mmol/L (98-107); SODIUM,NA 136 mmol/L (136-145)
[2020-03-22] MEDS ORDERED: Promethazine 25 MG/ML SDV IM ONE (10:12)
[2020-03-22] MEDS ORDERED: Ketorolac 30 MG/ML SDV IVPUSH ONE (10:13)
== END 2020-03-22 11:40 | disposition home or self-care (01) ==
LOC: DL.ED 09:12
DX: K52.9 Noninfective gastroenteritis and colitis, unspecified (principal); E86.0 Dehydration; G43.909 Migraine, unspecified, not intractable, without status migrainosus; K21.9 Gastro-esophageal reflux disease without esophagitis; M19.90 Unspecified osteoarthritis, unspecified site; F32.9 Major depressive disorder, single episode, unspecified; F41.9 Anxiety disorder, unspecified; E66.9 Obesity, unspecified; G62.9 Polyneuropathy, unspecified; Z79.899 Other long term (current) drug therapy; Z90.710 Acquired absence of both cervix and uterus; Z98.890 Other specified postprocedural states; Z20.828 Contact with and (suspected) exposure to other viral communicable diseases; Z88.8 Allergy status to other drugs, medicaments and biological substances
CPT/HCPCS: 36415; 80053; 82150; 83605; 83690; 85025; 86140; 96361; 96372; 96374; 96375; 99284-25; J1885; J2405; J2550; J7030; U0002

== ENCOUNTER 2020-04-14 15:33 | Emergency (ER) | payer MEDICARE, MEDICAID ==
[2020-04-14] MEDS ORDERED: Gabapentin 300 MG Cap PO ONE ×2 (15:34→16:04)
[2020-04-14 15:54] VITALS: BP 140/90; PULSE 144
[2020-04-14] MEDS ORDERED: Ketorolac 30 MG/ML SDV IM ONE (16:04)
--- NOTE | 2020-04-14 16:11 | EDM.PDOC ---
ED HPI GENERAL MEDICAL PROBLEM - General Chief Complaint: Lower Extremity Injury/Pain Stated Complaint: TWISTED LEFT KNEE, ARTHRITIS GETTING REFIL Time Seen by Provider: 04/14/20 15:55 Source of Information: Reports: Patient, RN, RN Notes Reviewed History Limitations: Reports: No Limitations - History of Present Illness INITIAL COMMENTS - FREE TEXT/NARRATIVE: Patient presents to ER with complaint of left knee pain. Patient states she is having a total knee replacement in the next couple weeks. States she fell at home yesterday and is having increased pain to the left knee. Patient states she did forget to get her gabapentin refilled, and states she is feeling anxious and jittery since she has not taken the gabapentin. Onset: Gradual - Related Data Allergies Allergy/AdvReac Type Severity Reaction Status Date / Time topiramate [From Topamax] Allergy Cannot Verified 04/14/20 15:49 Remember risperidone [From Risperdal] AdvReac Fever Verified 04/14/20 15:49 Home Meds: Home Meds traZODone 300 mg PO BEDTIME 06/19/15 [History] DULoxetine [Cymbalta] 60 mg PO BID 06/30/16 [History] Gabapentin [Neurontin] 600 mg PO TID 10/03/16 [History] QUEtiapine [SEROquel] 300 mg PO BEDTIME 07/27/18 [History] Nabumetone [Relafen Ds] 500 mg PO BID 04/14/20 [History] Past Medical History HEENT History: Reports: Impaired Vision Gastrointestinal History: Reports: GERD, Other (See Below) 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 bartholin cyst Musculoskeletal History: Reports: Arthritis, Back Pain, Chronic, Fibromyalgia Neurological History: Reports: Seizure, Other (See Below) Other Neuro History: Neuropathy Psychiatric History: Reports: Addiction, Anxiety, Depression, Psych Hospitalization(s), Suicidal Ideation Endocrine/Metabolic History: Reports: Obesity/BMI 30+ - Past Surgical History Female Surgical History: Reports: Hysterectomy Neurological Surgical History: Reports: Spinal Fusion Musculoskeletal Surgical History: Reports: Arthroscopic Knee, Knee Replacement, Shoulder Surgery Social & Family History - Family History Family Medical History: Noncontributory - Caffeine Use Caffeine Use: Reports: Coffee, Soda Review of Systems - Review of Systems Review Of Systems: Comprehensive ROS is negative, except as noted in HPI. ED EXAM, GENERAL - Physical Exam Exam: See Below Exam Limited By: No Limitations General Appearance: Alert, WD/WN, No Apparent Distress, Anxious Eye Exam: Bilateral Eye: EOMI, Normal Inspection Ears: Normal External Exam, Hearing Grossly Normal Nose: Normal Inspection Throat/Mouth: Normal Inspection, Normal Voice, No Airway Compromise Head: Atraumatic, Normocephalic Neck: Normal Inspection, Supple, Non-Tender, Full Range of Motion Respiratory/Chest: No Respiratory Distress, Lungs Clear, Normal Breath Sounds, No Accessory Muscle Use, Chest Non-Tender Cardiovascular: Normal Peripheral Pulses, Regular Rate, Rhythm, No Edema, No Gallop, No JVD, No Murmur, No Rub Peripheral Pulses: 2+: Radial (L), Radial (R), Dorsalis Pedis (L), Dorsalis Pedis (R) GI/Abdominal: Normal Bowel Sounds, Soft, Non-Tender (Female) Exam: Deferred Rectal (Female) Exam: Deferred Back Exam: Normal Inspection, Full Range of Motion, NT Extremities: Joint Swelling (left knee), Leg Pain (left knee), Limited Range of Motion (left knee) Neurological: Alert, Oriented, CN II-XII Intact, Normal Cognition, Normal Gait, Normal Reflexes, No Motor/Sensory Deficits Psychiatric: Normal Affect, Normal Mood, Anxious Skin Exam: Warm, Dry, Intact, Normal Color, No Rash Lymphatic: No Adenopathy Course - Vital Signs Last Recorded V/S: Last Vital Signs Temp 98.6 F 04/14/20 15:40 Pulse 144 H 04/14/20 15:40 Resp 20 04/14/20 15:40 BP 140/90 04/14/20 15:40 Pulse Ox 100 04/14/20 15:40 - Orders/Labs/Meds Meds: Medications Discontinued Medications Generic Name Dose Route Start Last Admin Trade Name Freq PRN Reason Stop Dose Admin Gabapentin 600 mg 04/14/20 16:04 Neurontin PO 04/14/20 16:05 ONETIME ONE Ketorolac Tromethamine 30 mg 04/14/20 16:04 Toradol IM 04/14/20 16:05 ONETIME ONE Departure - Departure Time of Disposition: 16:30 Disposition: Home, Self-Care 01 Condition: Fair Clinical Impression: Chronic pain of left knee, Withdrawal complaint - Discharge Information *PRESCRIPTION DRUG MONITORING PROGRAM REVIEWED*: No *COPY OF PRESCRIPTION DRUG MONITORING REPORT IN PATIENT MAC: No Instructions: Chronic Knee Pain, Adult, [id number], How to Use Cold Therapy, [id number], Knee Sprain, Adult, [id number], Joint Pain, [id number] Additional Instructions: Elevate and ice the knee as tolerated Rest, stay off the leg as much as possible Get your medications filled tomorrow May use Tylenol and/or ibuprofen as directed for pain Sepsis Event Note (ED) - Evaluation Sepsis Screening Result: No Definite Risk - Focused Exam Vital Signs: Vital Signs Temp Pulse Resp BP Pulse Ox 04/14/20 15:40 98.6 F 144 H 20 140/90 100
[2020-04-14] MEDS ORDERED: Gabapentin 300 MG Cap ONE (16:40)
== END 2020-04-14 16:25 | disposition home or self-care (01) ==
LOC: DL.ED 15:33
DX: G89.29 Other chronic pain (principal); M25.562 Pain in left knee; M25.462 Effusion, left knee; E66.9 Obesity, unspecified; Z88.3 Allergy status to other anti-infective agents; Z68.28 Body mass index [BMI] 28.0-28.9, adult; Z90.710 Acquired absence of both cervix and uterus
CPT/HCPCS: 96372; 99283; A9270; J1885; 99282

== ENCOUNTER 2020-04-21 11:08 | Emergency (ER) | payer MEDICARE, MEDICAID ==
[2020-04-21 11:21] VITALS: BP 161/100; PULSE 102
[2020-04-21] MEDS ORDERED: Ketorolac 30 MG/ML SDV IM ONE (12:01)
--- NOTE | 2020-04-21 12:02 | EDM.PDOC ---
ED HPI GENERAL MEDICAL PROBLEM - General Chief Complaint: Lower Extremity Injury/Pain Stated Complaint: KNEE PAIN Left Knee Pain Score (Numeric/FACES): 5 - Related Data Allergies Allergy/AdvReac Type Severity Reaction Status Date / Time topiramate [From Topamax] Allergy Cannot Verified 04/21/20 11:22 Remember risperidone [From Risperdal] AdvReac Fever Verified 04/21/20 11:22 Home Meds: Home Meds traZODone 300 mg PO BEDTIME 06/19/15 [History] DULoxetine [Cymbalta] 60 mg PO BID 06/30/16 [History] Gabapentin [Neurontin] 600 mg PO TID 10/03/16 [History] QUEtiapine [SEROquel] 300 mg PO BEDTIME 07/27/18 [History] Nabumetone [Relafen Ds] 500 mg PO BID 04/14/20 [History] Pantoprazole Sodium [Protonix] 40 mg PO DAILY 04/21/20 [History] Past Medical History HEENT History: Reports: Impaired Vision Cardiovascular History: Reports: None Respiratory History: Reports: None Gastrointestinal History: Reports: GERD, Other (See Below) 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 Genitourinary History: Reports: None OR 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 bartholin cyst Musculoskeletal History: Reports: Arthritis, Back Pain, Chronic, Fibromyalgia Neurological History: Reports: Neuropathy, Peripheral, Seizure, Other (See Below) Other Neuro History: Neuropathy Psychiatric History: Reports: Addiction, Anxiety, Depression, Psych Hospitalization(s), Suicidal Ideation Endocrine/Metabolic History: Reports: Obesity/BMI 30+ Hematologic History: Reports: None Immunologic History: Reports: None Oncologic (Cancer) History: Reports: None Dermatologic History: Reports: None - Infectious Disease History Infectious Disease History: Reports: None - Past Surgical History Head Surgeries/Procedures: Reports: None Female Surgical History: Reports: Hysterectomy Neurological Surgical History: Reports: Spinal Fusion Musculoskeletal Surgical History: Reports: Arthroscopic Knee, Knee Replacement, Shoulder Surgery Social & Family History - Family History Family Medical History: Noncontributory - Tobacco Use Smoking Status *Q: Never Smoker Second Hand Smoke Exposure: No - Caffeine Use Caffeine Use: Reports: Soda - Recreational Drug Use Recreational Drug Use: No Course - Vital Signs Last Recorded V/S: Last Vital Signs Temp 97.3 F 04/21/20 11:20 Pulse 102 H 04/21/20 11:20 Resp 18 04/21/20 11:20 BP 161/100 H 04/21/20 11:20 Pulse Ox 100 04/21/20 11:20 - Orders/Labs/Meds Orders: Active Orders 24 hr Category Date Time Status Ketorolac [Toradol] Med 04/21/20 12:01 Once 60 mg IM ONETIME ONE Departure - Discharge Information Sepsis Event Note (ED) - Evaluation Sepsis Screening Result: No Definite Risk - Focused Exam Vital Signs: Vital Signs Temp Pulse Resp BP Pulse Ox 04/21/20 11:20 97.3 F 102 H 18 161/100 H 100 - My Orders Last 24 Hours: My Active Orders 04/21/20 12:01 Ketorolac [Toradol] 60 mg IM ONETIME ONE - Assessment/Plan Last 24 Hours: My Active Orders 04/21/20 12:01 Ketorolac [Toradol] 60 mg IM ONETIME ONE
--- NOTE | 2020-04-21 12:07 | EDM.PDOC ---
Scribed by Shana Guevara 04/21/20 1207 for Silvino Kirkpatrick MD ED HPI GENERAL MEDICAL PROBLEM - General Chief Complaint: Lower Extremity Injury/Pain Stated Complaint: KNEE PAIN Time Seen by Provider: 04/21/20 11:55 Source of Information: Reports: Patient, RN, RN Notes Reviewed History Limitations: Reports: No Limitations - History of Present Illness INITIAL COMMENTS - FREE TEXT/NARRATIVE: Patient presents to ED by POV ambulating into ED with use of crutches for chronic knee pain. Patient is scheduled to have surgery on the . She received [place] and a Toradol shot last week at PCP office. She is out of pain medication and the pain has increased today. Onset: Gradual Duration: Getting Worse Location: Reports: Lower Extremity, Left Quality: Reports: Ache Severity: Moderate Improves with: Reports: None Worsens with: Reports: None Associated Symptoms: Reports: No Other Symptoms Left Knee Pain Score (Numeric/FACES): 5 - Related Data Allergies Allergy/AdvReac Type Severity Reaction Status Date / Time topiramate [From Topamax] Allergy Cannot Verified 04/21/20 11:22 Remember risperidone [From Risperdal] AdvReac Fever Verified 04/21/20 11:22 Home Meds: Home Meds traZODone 300 mg PO BEDTIME 06/19/15 [History] DULoxetine [Cymbalta] 60 mg PO BID 06/30/16 [History] Gabapentin [Neurontin] 600 mg PO TID 10/03/16 [History] QUEtiapine [SEROquel] 300 mg PO BEDTIME 07/27/18 [History] Nabumetone [Relafen Ds] 500 mg PO BID 04/14/20 [History] Pantoprazole Sodium [Protonix] 40 mg PO DAILY 04/21/20 [History] Past Medical History HEENT History: Reports: Impaired Vision Cardiovascular History: Reports: None Respiratory History: Reports: None Gastrointestinal History: Reports: GERD, Other (See Below) 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 Genitourinary History: Reports: None 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 bartholin cyst Musculoskeletal History: Reports: Arthritis, Back Pain, Chronic, Fibromyalgia Neurological History: Reports: Neuropathy, Peripheral, Seizure, Other (See Below) Other Neuro History: Neuropathy Psychiatric History: Reports: Addiction, Anxiety, Depression, Psych Hospitalization(s), Suicidal Ideation Endocrine/Metabolic History: Reports: Obesity/BMI 30+ Hematologic History: Reports: None Immunologic History: Reports: None Oncologic (Cancer) History: Reports: None Dermatologic History: Reports: None - Infectious Disease History Infectious Disease History: Reports: None - Past Surgical History Head Surgeries/Procedures: Reports: None Female Surgical History: Reports: Hysterectomy Neurological Surgical History: Reports: Spinal Fusion Musculoskeletal Surgical History: Reports: Arthroscopic Knee, Knee Replacement, Shoulder Surgery Social & Family History - Family History Family Medical History: Noncontributory - Tobacco Use Smoking Status *Q: Never Smoker Second Hand Smoke Exposure: No - Caffeine Use Caffeine Use: Reports: Soda - Recreational Drug Use Recreational Drug Use: No Review of Systems - Review of Systems Review Of Systems: Comprehensive ROS is negative, except as noted in HPI. ED EXAM, GENERAL - Physical Exam Exam: See Below Exam Limited By: No Limitations General Appearance: Alert, WD/WN, No Apparent Distress Head: Atraumatic, Normocephalic Respiratory/Chest: No Respiratory Distress Cardiovascular: Normal Peripheral Pulses Extremities: Other (generalized tenderness. No acute swelling. No visible erythema. Range of motion limited due to pain with palpable crepitus. ) Course - Vital Signs Last Recorded V/S: Last Vital Signs Temp 97.3 F 04/21/20 11:20 Pulse 102 H 04/21/20 11:20 Resp 18 04/21/20 11:20 BP 161/100 H 04/21/20 11:20 Pulse Ox 100 04/21/20 11:20 - Orders/Labs/Meds Meds: Medications Discontinued Medications Generic Name Dose Route Start Last Admin Trade Name Freq PRN Reason Stop Dose Admin Ketorolac Tromethamine 60 mg 04/21/20 12:01 04/21/20 12:05 Toradol IM 04/21/20 12:02 60 mg ONETIME ONE Administration Departure - Departure Time of Disposition: 12:03 Disposition: Home, Self-Care 01 Condition: Good Clinical Impression: Osteoarthritis of left knee Qualifiers: Osteoarthritis type: unspecified Qualified Code(s): M17.12 - Unilateral primary osteoarthritis, left knee - Discharge Information *PRESCRIPTION DRUG MONITORING PROGRAM REVIEWED*: Not Applicable *COPY OF PRESCRIPTION DRUG MONITORING REPORT IN PATIENT MAC: Not Applicable Instructions: Osteoarthritis Forms: ED Department Discharge Additional Instructions: RX: Hydrocodone 5/325mg. Follow up with orthopedic surgeon as planned. Follow up in clinic with your primary physician this week if needed for pain control. Sepsis Event Note (ED) - Evaluation Sepsis Screening Result: No Definite Risk - Focused Exam Vital Signs: Vital Signs Temp Pulse Resp BP Pulse Ox 04/21/20 11:20 97.3 F 102 H 18 161/100 H 100 I have read and agree with the documentation that has been completed regarding this visit. By signing this record, I attest that the documentation was completed in my physical presence and is an accurate record of the encounter.
== END 2020-04-21 12:09 | disposition home or self-care (01) ==
LOC: DL.ED 11:08
DX: M17.12 Unilateral primary osteoarthritis, left knee (principal); K21.9 Gastro-esophageal reflux disease without esophagitis; F41.9 Anxiety disorder, unspecified; F32.9 Major depressive disorder, single episode, unspecified; E66.9 Obesity, unspecified; Z68.31 Body mass index [BMI] 31.0-31.9, adult; Z90.710 Acquired absence of both cervix and uterus; Z88.8 Allergy status to other drugs, medicaments and biological substances; Z79.899 Other long term (current) drug therapy
CPT/HCPCS: 96372; 99283; J1885

== ENCOUNTER 2020-06-20 15:50 | Emergency (ER) | payer MEDICARE, MEDICAID ==
[2020-06-20 16:28] VITALS: BP 121/88; PULSE 98
--- NOTE | 2020-06-20 18:19 | EDM.PDOC ---
ED HPI GENERAL MEDICAL PROBLEM - General Chief Complaint: Lower Extremity Injury/Pain Stated Complaint: KNEE REPLACEMENT TWISTED KNEE Time Seen by Provider: 06/20/20 17:20 Source of Information: Reports: Patient, RN, RN Notes Reviewed History Limitations: Reports: No Limitations - History of Present Illness INITIAL COMMENTS - FREE TEXT/NARRATIVE: Patient presented to ED via personal vehicle for complaints of left knee pain. The patient states she underwent a total knee replacement six weeks ago and therapy has been going well. She reports she strained her knee at approximately 0400 this morning while walking to the bathroom; she misstepped while avoiding a family pet and her knee gave out. She denies any additional injury to the area. She denies speaking with her surgeon about this injury. She denies loss of motor or sensory function to the area. Left Knee Pain Score (Numeric/FACES): 5 - Related Data Allergies Allergy/AdvReac Type Severity Reaction Status Date / Time topiramate [From Topamax] Allergy Cannot Verified 06/20/20 16:28 Remember risperidone [From Risperdal] AdvReac Fever Verified 06/20/20 16:28 Home Meds: Home Meds traZODone 300 mg PO BEDTIME 06/19/15 [History] DULoxetine [Cymbalta] 120 mg PO DAILY 06/30/16 [History] Gabapentin [Neurontin] 600 mg PO TID 10/03/16 [History] QUEtiapine [SEROquel] 300 mg PO BEDTIME 07/27/18 [History] Pantoprazole Sodium [Protonix] 40 mg PO DAILY 04/21/20 [History] Past Medical History HEENT History: Reports: Impaired Vision Cardiovascular History: Reports: None Respiratory History: Reports: None Gastrointestinal History: Reports: GERD, Other (See Below) 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 Genitourinary History: Reports: None 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 bartholin cyst Musculoskeletal History: Reports: Arthritis, Back Pain, Chronic, Fibromyalgia Neurological History: Reports: Neuropathy, Peripheral, Seizure, Other (See Below) Other Neuro History: Neuropathy Psychiatric History: Reports: Addiction, Anxiety, Depression, Psych Hospitalization(s), Suicidal Ideation Endocrine/Metabolic History: Reports: Obesity/BMI 30+ Hematologic History: Reports: None Immunologic History: Reports: None Oncologic (Cancer) History: Reports: None Dermatologic History: Reports: None - Infectious Disease History Infectious Disease History: Reports: Chicken Pox, Measles, Mumps - Past Surgical History Head Surgeries/Procedures: Reports: None Female Surgical History: Reports: Hysterectomy Neurological Surgical History: Reports: Spinal Fusion Musculoskeletal Surgical History: Reports: Arthroscopic Knee, Knee Replacement, Shoulder Surgery Social & Family History - Family History Family Medical History: Noncontributory - Tobacco Use Tobacco Use Status *Q: Never Tobacco User Second Hand Smoke Exposure: No - Caffeine Use Caffeine Use: Reports: Coffee - Recreational Drug Use Recreational Drug Use: Yes Recreational Drug Type: Reports: Marijuana/Hashish Review of Systems - Review of Systems Review Of Systems: Comprehensive ROS is negative, except as noted in HPI. ED EXAM, GENERAL - Physical Exam Exam: See Below Exam Limited By: No Limitations General Appearance: Alert, WD/WN, No Apparent Distress Peripheral Pulses: 2+: Dorsalis Pedis (L), Dorsalis Pedis (R) Extremities: Leg Pain (To left knee), Limited Range of Motion (To left knee), Increased Warmth (To left knee). No: Redness Neurological: Alert, Oriented, CN II-XII Intact, Normal Cognition, No Motor/Sensory Deficits Skin Exam: Warm, Dry, Intact, Normal Color, No Rash Course - Vital Signs Last Recorded V/S: Last Vital Signs Temp 97 F 06/20/20 16:23 Pulse 98 06/20/20 16:23 Resp 16 06/20/20 16:23 BP 121/88 06/20/20 16:23 Pulse Ox 99 06/20/20 16:23 - Orders/Labs/Meds Meds: Medications Discontinued Medications Generic Name Dose Route Start Last Admin Trade Name Maryam PRN Reason Stop Dose Admin Ketorolac Tromethamine 30 mg 06/20/20 18:20 06/20/20 18:36 Toradol IM 06/20/20 18:21 30 mg ONETIME ONE Administration - Radiology Interpretation Free Text/Narrative:: [facility] Final Radiology Report Call: [phone] assistance Online chat: [email or web address] Name: RUSTY MUNSON Age: 60Years F Date: 06/20/2020 SSN: -- : 1960 Study: CR KNEE 3V LT Requesting Physician: Zabrina Fox Images: 3 Addl Studies: Provided Clinical History: Post total knee; Strained today Contrast: Contrast Medium: Contrast Amount: Contrast Method: CONFIDENTIALITY STATEMENT This report is intended only for use by the referring physician, and only in accordance with law. If you received this in error, call [phone]. Page 1 of 1 PROCEDURE INFORMATION: Exam: XR Left Knee Exam date and time: 06/20/2020 6:06 PM Age: 60 years old Clinical indication: Other: Fall; Additional info: Post total knee; Strained today TECHNIQUE: Imaging protocol: XR Left knee. Views: 3 views. COMPARISON: MR Knee wo Cont Lt 03/02/2019 10:00 AM FINDINGS: Bones/joints: Post TKA. Prosthetic components are well positioned. No hardware failure/loosening. Small joint effusion. Screw hole defects in the distal femur. Soft tissues: Normal. IMPRESSION: No acute findings. Post TKA with small joint effusion. Thank you for allowing us to participate in the care of your patient. Dictated and Authenticated by: Derik Darling MD 06/20/2020 6:31 PM Central Time ([place] & [place]) - Re-Assessments/Exams Free Text/Narrative Re-Assessment/Exam: 06/20/20 Xray of left knee unremarkable for acute processes. Toradol 30mg IM administered. Patient instructed to follow up with surgeon regarding today's visit and injury to knee. Departure - Departure Time of Disposition: 18:21 Disposition: Home, Self-Care 01 Condition: Good Clinical Impression: Left knee pain Qualifiers: Chronicity: acute Qualified Code(s): M25.562 - Pain in left knee - Discharge Information *PRESCRIPTION DRUG MONITORING PROGRAM REVIEWED*: Not Applicable *COPY OF PRESCRIPTION DRUG MONITORING REPORT IN PATIENT MAC: Not Applicable Instructions: Acute Knee Pain, Adult Forms: ED Department Discharge Additional Instructions: Follow up with surgeon regarding today's visit and recent injury. Drink plenty of fluids to stay hydrated after receiving Toradol in the emergency room today. Apply ice to affected area to help with inflammation. Do not use NSAIDS (Motrin/Aleve/Advil) following Toradol injection. Sepsis Event Note (ED) - Evaluation Sepsis Screening Result: No Definite Risk - Focused Exam Vital Signs: Vital Signs Temp Pulse Resp BP Pulse Ox 06/20/20 16:23 97 F 98 16 121/88 99
[2020-06-20] MEDS ORDERED: Ketorolac 30 MG/ML SDV IM ONE (18:20)
--- NOTE | 2020-06-20 18:31 | CR ---
PROCEDURE INFORMATION: Exam: XR Left Knee Exam date and time: 06/20/2020 6:06 PM Age: 60 years old Clinical indication: Other: Fall; Additional info: Post total knee; Strained today TECHNIQUE: Imaging protocol: XR Left knee. Views: 3 views. COMPARISON: MR Knee wo Cont Lt 03/02/2019 10:00 AM FINDINGS: Bones/joints: Post TKA. Prosthetic components are well positioned. No hardware failure/loosening. Small joint effusion. Screw hole defects in the distal femur. Soft tissues: Normal. IMPRESSION: No acute findings. Post TKA with small joint effusion.
== END 2020-06-20 18:48 | disposition home or self-care (01) ==
LOC: DL.ED 15:50
DX: M25.562 Pain in left knee (principal); K21.9 Gastro-esophageal reflux disease without esophagitis; F41.9 Anxiety disorder, unspecified; F32.9 Major depressive disorder, single episode, unspecified; G62.9 Polyneuropathy, unspecified; E66.9 Obesity, unspecified; Z68.29 Body mass index [BMI] 29.0-29.9, adult; Z88.8 Allergy status to other drugs, medicaments and biological substances; Z79.899 Other long term (current) drug therapy
CPT/HCPCS: 73562; 96372; 99283; J1885

== ENCOUNTER 2020-11-06 19:07 | Inpatient (IN) | payer MEDICARE, MEDICAID ==
[2020-11-06] MEDS ORDERED: Ondansetron 4 MG/2 ML SDV IVPUSH ONE (19:29)
[2020-11-06] MEDS ORDERED: HYDROmorphone 1 MG/ML Syringe IVPUSH ONE ×2 (19:29→20:03)
[2020-11-06] MEDS ORDERED: Sodium Chloride 0.9% 1,000 ML IV ONE (19:29)
[2020-11-06 19:58] LABS: ANION GAP 15.8 mEq/L (7-13)
--- NOTE | 2020-11-06 20:00 | CR ---
PROCEDURE INFORMATION: Exam: XR Chest Exam date and time: 11/06/2020 7:32 PM Age: 60 years old Clinical indication: Other: Abdominal pain TECHNIQUE: Imaging protocol: XR of the chest Views: 1 view. COMPARISON: CR Chest 2V 02/21/2018 1:38 PM FINDINGS: Lungs: Unremarkable. No consolidation. Irregular left basilar opacity likely represents scarring. Pleural spaces: Unremarkable. No pleural effusion. No pneumothorax. Heart/Mediastinum: Unremarkable. No cardiomegaly. Bones/joints: Unremarkable. Hardware attached to cervical spine. IMPRESSION: No acute findings.
--- NOTE | 2020-11-06 20:01 | CR ---
PROCEDURE INFORMATION: Exam: XR Abdomen Exam date and time: 11/06/2020 7:47 PM Age: 60 years old Clinical indication: Abdominal pain TECHNIQUE: Imaging protocol: XR of the abdomen. Views: Frontal supine view of the abdomen. 1 View. COMPARISON: CR Abdomen 2V AP Flat Upright 10/01/2017 2:57 PM FINDINGS: Gastrointestinal tract: Normal. No bowel dilation. Bones/joints: Unremarkable. IMPRESSION: No acute findings.
[2020-11-06] MEDS ORDERED: Iopamidol 612 MG/ML 100 ML Bottle IVPUSH ONE (20:09)
--- NOTE | 2020-11-06 20:10 | EDM.PDOC ---
ED HPI GENERAL MEDICAL PROBLEM - General Chief Complaint: Gastrointestinal Problem Stated Complaint: ABD PAIN Time Seen by Provider: 11/06/20 19:25 Source of Information: Reports: Patient History Limitations: Reports: No Limitations - History of Present Illness INITIAL COMMENTS - FREE TEXT/NARRATIVE: ED ambulatory with c/o lwer abdominal pain. Hx IBS and diverticulitis. Was seen in clinic yesterday started on Flagyl. Today increased pain and distension, No fever, some "sweats" nausea no vomiting. Prior hx bowel obstructions and intussusception. Lower Abdomen Pain Score (Numeric/FACES): 7 - Related Data Allergies Allergy/AdvReac Type Severity Reaction Status Date / Time topiramate [From Topamax] Allergy Cannot Verified 11/06/20 19:14 Remember risperidone [From Risperdal] AdvReac Fever Verified 11/06/20 19:14 Home Meds: Home Meds traZODone 300 mg PO BEDTIME 06/19/15 [History] Gabapentin [Neurontin] 600 mg PO BID 10/03/16 [History] QUEtiapine [SEROquel] 400 mg PO BEDTIME 07/27/18 [History] Pantoprazole Sodium [Protonix] 40 mg PO DAILY 04/21/20 [History] Cranberry Fruit Extract [Cranberry] 200 mg PO DAILY 11/06/20 [History] Multivitamin with Iron [Multivitamins with Iron] 1 each PO DAILY 11/06/20 [History] Nabumetone [Relafen] 500 mg PO BID 11/06/20 [History] Past Medical History HEENT History: Reports: Impaired Vision Cardiovascular History: Reports: None Respiratory History: Reports: Pneumonia, Recurrent Gastrointestinal History: Reports: Diverticulosis, GERD, Irritable Bowel Syndrome, Other (See Below) 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 Genitourinary History: Reports: None, Other (See Below) Other Genitourinary History: kidney failure in apr 2020 EGG SETTER History: Reports: , Other (See Below) Other EGG SETTER History: hysterectomy, still has ovaries however no uterus. bartholin cyst Musculoskeletal History: Reports: Arthritis, Back Pain, Chronic, Fibromyalgia Neurological History: Reports: Neuropathy, Peripheral, Seizure, Other (See Below) Other Neuro History: Neuropathy Psychiatric History: Reports: Addiction, Anxiety, Depression, Psych Hospitalization(s), Suicidal Ideation Endocrine/Metabolic History: Reports: Obesity/BMI 30+ Hematologic History: Reports: Blood Transfusion(s) Immunologic History: Reports: None Oncologic (Cancer) History: Reports: None Dermatologic History: Reports: None - Infectious Disease History Infectious Disease History: Reports: Chicken Pox, Measles, Mumps - Past Surgical History Head Surgeries/Procedures: Reports: None GI Surgical History: Reports: Appendectomy Female Surgical History: Reports: Hysterectomy Neurological Surgical History: Reports: Spinal Fusion Musculoskeletal Surgical History: Reports: Arthroscopic Knee, Knee Replacement, Shoulder Surgery Other Musculoskeletal Surgeries/Procedures:: neck fusion, left ankle surgery, L and R knee surgery Social & Family History - Family History Family Medical History: No Pertinent Family History - Tobacco Use Tobacco Use Status *Q: Never Tobacco User Second Hand Smoke Exposure: No - Caffeine Use Caffeine Use: Reports: None - Recreational Drug Use Recreational Drug Use: No ED ROS GENERAL - Review of Systems Review Of Systems: Comprehensive ROS is negative, except as noted in HPI. ED EXAM, GI/ABD - Physical Exam Exam: See Below Exam Limited By: No Limitations General Appearance: Alert, Moderate Distress Eyes: Bilateral: EOMI Ears: Normal External Exam Nose: Normal Inspection Throat/Mouth: Normal Inspection Head: Atraumatic, Normocephalic Neck: Normal Inspection Respiratory/Chest: No Respiratory Distress, Lungs Clear, Normal Breath Sounds Cardiovascular: Regular Rate, Rhythm GI/Abdominal Exam: Abnormal Bowel Sounds Back Exam: Full Range of Motion Extremities: Normal Inspection Neurological: Alert, Oriented, Normal Cognition, No Motor/Sensory Deficits Psychiatric: Normal Affect Skin Exam: Warm, Dry, Intact, Normal Color Course - Vital Signs Last Recorded V/S: Last Vital Signs Temp 96.7 F L 11/06/20 22:03 Pulse 70 11/06/20 22:03 Resp 18 11/06/20 22:03 BP 115/84 11/06/20 22:03 Pulse Ox 98 11/06/20 22:03 - Orders/Labs/Meds Orders: Active Orders 24 hr Category Date Time Status Abdomen 1V Upright [CR] Stat Exams 11/06/20 19:29 Ordered Chest 1V Frontal [CR] Stat Exams 11/06/20 19:29 Ordered CULTURE BLOOD [BC] Stat Lab 11/06/20 19:31 Received CULTURE URINE [RM] Stat Lab 11/06/20 20:52 Received NG [Nasogastric Orogastric Tube Insertion] [OM.PC] Oth 11/06/20 19:29 Ordered Routine Medication Orders Heparin Sodium (Porcine) (Heparin Sodium 5,000 Units/Ml Vial) 5,000 units SUBCUT Q8HR [facility] Hydromorphone HCl (Hydromorphone 0.5 Mg/0.5 Ml Syringe) 0.5 mg IVPUSH Q4H PRN PRN Reason: Pain (severe 7-10) Dextrose/Sodium Chloride (Dextrose 5%-1/2 Ns) 1,000 mls @ 125 mls/hr IV ASDIRECTED [facility] Last Admin: 11/06/20 22:50 Dose: 125 mls/hr Documented by: VIKTORIA Ketorolac Tromethamine (Ketorolac 30 Mg/Ml Sdv) 30 mg IVPUSH Q6H PRN PRN Reason: Pain (moderate 4-6) Last Admin: 11/07/20 00:03 Dose: 30 mg Documented by: ADORE Ondansetron HCl (Ondansetron 4 Mg/2 Ml Sdv) 4 mg IVPUSH Q6H PRN PRN Reason: Nausea/Vomiting Labs: Laboratory Tests 11/06/20 11/06/20 11/06/20 Range/Units 19:31 19:31 19:31 WBC 7.7 (5.0-10.0) 10^3/uL RBC 3.61 L (4.2-5.4) 10^6/uL Hgb 11.1 L D (12.0-16.0) g/dL Hct 33.3 L (37.0-47.0) % MCV 92.2 (80-100) fL MCH 30.7 (27.0-34.0) pg MCHC 33.3 (33.0-35.0) g/dL Plt Count 314 (150-450) 10^3/uL Neut % (Auto) 55.5 (42.2-75.2) % Lymph % (Auto) 34.0 (20.5-50.1) % [place] % (Auto) 7.6 (2-8) % Eos % (Auto) 2.0 (1.0-3.0) % Baso % (Auto) 0.9 (0.0-1.0) % Sodium 144 (136-145) mmol/L Potassium 3.8 (3.5-5.1) mmol/L Chloride 107 (98-107) mmol/L Carbon Dioxide 25 (21-32) mmol/L Anion Gap 15.8 H (7-13) mEq/L BUN 17 (7-18) mg/dL Creatinine 1.01 (0.55-1.02) mg/dL Est Cr Clr Drug Dosing 56.84 mL/min Estimated GFR (MDRD) 56 BUN/Creatinine Ratio 16.8 (No establ ref range) Glucose 112 H (74-99) mg/dL Lactic Acid 1.7 (0.4-2.0) mmol/L Calcium 8.6 (8.5-10.1) mg/dL Total Bilirubin 0.3 (0.2-1.0) mg/dL AST 15 (15-37) U/L ALT 27 (14-59) U/L Alkaline Phosphatase 86 (46-116) U/L Total Protein 7.5 (6.4-8.2) g/dL Albumin 3.7 (3.4-5.0) g/dL Globulin 3.8 Albumin/Globulin Ratio 1.0 Amylase 51 (25-115) U/L Lipase 156 (73-393) U/L Urine Color (YELLOW) Urine Appearance (CLEAR) Urine pH (5.0-9.0) Ur Specific [place] (1.005-1.030) Urine Protein (NEGATIVE) Urine Glucose (UA) (NEGATIVE) Urine Ketones (NEGATIVE) Urine Occult Blood (NEGATIVE) Urine Nitrite (NEGATIVE) Urine Bilirubin (NEGATIVE) Urine Urobilinogen (0.2-1.0) mg/dL Ur Leukocyte Esterase (NEGATIVE) Urine RBC /HPF Urine WBC (0-5/HPF) /HPF Ur Epithelial Cells (NOT SEEN) /HPF Amorphous Sediment (NOT SEEN) /HPF Urine Bacteria (0-FEW/HPF) /HPF Urine Mucus (NOT SEEN) /LPF Urine Opiates Screen (NEGATIVE) Ur Oxycodone Screen (NEGATIVE) Urine Methadone Screen (NEGATIVE) Ur Barbiturates Screen (NEGATIVE) U Tricyclic Antidepress (NEGATIVE) Ur Phencyclidine Scrn (NEGATIVE) Ur Amphetamine Screen (NEGATIVE) U Methamphetamines Scrn (NEGATIVE) Urine MDMA Screen (NEGATIVE) U Benzodiazepines Scrn (NEGATIVE) Urine Cocaine Screen (NEGATIVE) U Marijuana (THC) Screen (NEGATIVE) 11/06/20 11/06/20 Range/Units 20:52 20:52 WBC (5.0-10.0) 10^3/uL RBC (4.2-5.4) 10^6/uL Hgb (12.0-16.0) g/dL Hct (37.0-47.0) % MCV (80-100) fL MCH (27.0-34.0) pg MCHC (33.0-35.0) g/dL Plt Count (150-450) 10^3/uL Neut % (Auto) (42.2-75.2) % Lymph % (Auto) (20.5-50.1) % [place] % (Auto) (2-8) % Eos % (Auto) (1.0-3.0) % Baso % (Auto) (0.0-1.0) % Sodium (136-145) mmol/L Potassium (3.5-5.1) mmol/L Chloride (98-107) mmol/L Carbon Dioxide (21-32) mmol/L Anion Gap (7-13) mEq/L BUN (7-18) mg/dL Creatinine (0.55-1.02) mg/dL Est Cr Clr Drug Dosing mL/min Estimated GFR (MDRD) BUN/Creatinine Ratio (No establ ref range) Glucose (74-99) mg/dL Lactic Acid (0.4-2.0) mmol/L Calcium (8.5-10.1) mg/dL Total Bilirubin (0.2-1.0) mg/dL AST (15-37) U/L ALT (14-59) U/L Alkaline Phosphatase (46-116) U/L Total Protein (6.4-8.2) g/dL Albumin (3.4-5.0) g/dL Globulin Albumin/Globulin Ratio Amylase (25-115) U/L Lipase (73-393) U/L Urine Color Dark yellow (YELLOW) Urine Appearance Slightly cloudy (CLEAR) Urine pH 5.5 (5.0-9.0) Ur Specific [place] 1.025 (1.005-1.030) Urine Protein Negative (NEGATIVE) Urine Glucose (UA) Negative (NEGATIVE) Urine Ketones Negative (NEGATIVE) Urine Occult Blood Negative (NEGATIVE) Urine Nitrite Negative (NEGATIVE) Urine Bilirubin Negative (NEGATIVE) Urine Urobilinogen 0.2 (0.2-1.0) mg/dL Ur Leukocyte Esterase Trace H (NEGATIVE) Urine RBC Not seen /HPF Urine WBC 10-20 H (0-5/HPF) /HPF Ur Epithelial Cells Moderate H (NOT SEEN) /HPF Amorphous Sediment Few (NOT SEEN) /HPF Urine Bacteria Few (0-FEW/HPF) /HPF Urine Mucus Rare (NOT SEEN) /LPF Urine Opiates Screen Negative (NEGATIVE) Ur Oxycodone Screen Negative (NEGATIVE) Urine Methadone Screen Negative (NEGATIVE) Ur Barbiturates Screen Negative (NEGATIVE) U Tricyclic Antidepress Negative (NEGATIVE) Ur Phencyclidine Scrn Negative (NEGATIVE) Ur Amphetamine Screen Negative (NEGATIVE) U Methamphetamines Scrn Negative (NEGATIVE) Urine MDMA Screen Negative (NEGATIVE) U Benzodiazepines Scrn Negative (NEGATIVE) Urine Cocaine Screen Negative (NEGATIVE) U Marijuana (THC) Screen Negative (NEGATIVE) Meds: Medications Generic Name Dose Route Start Last Admin Trade Name Freq PRN Reason Stop Dose Admin Heparin Sodium (Porcine) 5,000 units 11/07/20 06:00 Heparin Sodium 5,000 Units/Ml Vial SUBCUT Q8HR [facility] Hydromorphone HCl 0.5 mg 11/07/20 00:58 Hydromorphone 0.5 Mg/0.5 Ml Syringe IVPUSH Q4H PRN Pain (severe 7-10) Dextrose/Sodium Chloride 1,000 mls @ 125 mls/hr 11/06/20 22:00 11/06/20 22:50 Dextrose 5%-1/2 Ns IV 125 mls/hr ASDIRECTED [facility]UL[facility]ET Administration Ketorolac Tromethamine 30 mg 11/06/20 21:50 11/07/20 00:03 Ketorolac 30 Mg/Ml Sdv IVPUSH 30 mg Q6H PRN Administration Pain (moderate 4-6) Ondansetron HCl 4 mg 11/06/20 21:50 Ondansetron 4 Mg/2 Ml Sdv IVPUSH Q6H PRN Nausea/Vomiting Discontinued Medications Generic Name Dose Route Start Last Admin Trade Name Freq PRN Reason Stop Dose Admin Hydromorphone HCl 1 mg 11/06/20 19:29 11/06/20 19:36 Hydromorphone 1 Mg/Ml Syringe IVPUSH 11/06/20 19:30 1 mg ONETIME ONE Administration Hydromorphone HCl 1 mg 11/06/20 20:03 11/06/20 20:07 Hydromorphone 1 Mg/Ml Syringe IVPUSH 11/06/20 20:04 1 mg ONETIME ONE Administration Sodium Chloride 1,000 mls @ 200 mls/hr 11/06/20 19:29 11/06/20 19:33 Normal Saline IV 11/07/20 00:28 200 mls/hr .BOLUS ONE Administration Iopamidol 100 ml 11/06/20 20:09 11/06/20 20:41 Iopamidol 612 Mg/Ml 100 Ml Bottle IVPUSH 11/06/20 20:10 75 ml ONETIME ONE Administration Lidocaine HCl Confirm 11/07/20 00:20 Lidocaine 2% Jelly 5 Ml Tube Administered 11/07/20 00:21 Dose 5 ml .ROUTE .STK-MED ONE Methylnaltrexone [place] 12 mg 11/07/20 00:58 Methylnaltrexone 12 Mg/0.6 Ml Sdv SUBCUT 11/07/20 00:59 ONETIME ONE Metoclopramide HCl 10 mg 11/06/20 20:57 11/06/20 21:03 Metoclopramide 10 Mg/2 Ml Sdv IVPUSH 11/06/20 20:58 10 mg ONETIME ONE Administration Ondansetron HCl 4 mg 11/06/20 19:29 11/06/20 19:34 Ondansetron 4 Mg/2 Ml Sdv IVPUSH 11/06/20 19:30 4 mg ONETIME ONE Administration - Re-Assessments/Exams Free Text/Narrative Re-Assessment/Exam: Consult Dr Toney, here to assess patient. Accept for admission. Abdominal pain with distension, unable to tolerate oral intake. Departure - Departure Time of Disposition: 21:50 Disposition: Admitted As Inpatient 68 Condition: Good Clinical Impression: Abdominal pain, Constipation, Gastric distention - Discharge Information *PRESCRIPTION DRUG MONITORING PROGRAM REVIEWED*: Yes *COPY OF PRESCRIPTION DRUG MONITORING REPORT IN PATIENT MAC: No Sepsis Event Note (ED) - Evaluation Sepsis Screening Result: No Definite Risk - Focused Exam Vital Signs: Vital Signs Temp Pulse Resp BP Pulse Ox 11/06/20 19:23 97.6 F 104 H 20 128/100 H 100 - My Orders Last 24 Hours: My Active Orders 11/06/20 19:29 Abdomen 1V Upright [CR] Stat Chest 1V Frontal [CR] Stat NG [Nasogastric Orogastric Tube Insertion] [OM.PC] Routine 11/06/20 19:31 CULTURE BLOOD [BC] Stat 11/06/20 20:52 CULTURE URINE [RM] Stat - Assessment/Plan Last 24 Hours: My Active Orders 11/06/20 19:29 Abdomen 1V Upright [CR] Stat Chest 1V Frontal [CR] Stat NG [Nasogastric Orogastric Tube Insertion] [OM.PC] Routine 11/06/20 19:31 CULTURE BLOOD [BC] Stat 11/06/20 20:52 CULTURE URINE [RM] Stat
[2020-11-06] MEDS ORDERED: Metoclopramide 10 MG/2 ML SDV IVPUSH ONE (20:57)
--- NOTE | 2020-11-06 21:06 | CT ---
PROCEDURE INFORMATION: Exam: CT Abdomen And Pelvis With Contrast Exam date and time: 11/06/2020 8:18 PM Age: 60 years old Clinical indication: Bloating and other: Abdominal pain distension TECHNIQUE: Imaging protocol: Computed tomography of the abdomen and pelvis with contrast. Total images: 257 Radiation optimization: All CT scans at this facility use at least one of these dose optimization techniques: automated exposure control; mA and/or kV adjustment per patient size (includes targeted exams where dose is matched to clinical indication); or iterative reconstruction. Contrast material: [id number]; Contrast volume: 75 ml; Contrast route: INTRAVENOUS (IV); COMPARISON: CT Abdomen Pelvis wo Cont 11/30/2017 3:38 PM FINDINGS: Liver: Normal. No mass. Gallbladder and bile ducts: Normal. No calcified stones. No ductal dilation. Pancreas: Normal. No ductal dilation. Spleen: Normal. No splenomegaly. Adrenal glands: Normal. No mass. Kidneys and ureters: Normal. No hydronephrosis. Stomach and bowel: Stomach is moderately distended. Scattered colonic diverticula. Appendix: No evidence of appendicitis. Intraperitoneal space: Unremarkable. No free air. No significant fluid collection. Vasculature: Unremarkable. No abdominal aortic aneurysm. Lymph nodes: Unremarkable. No enlarged lymph nodes. Urinary bladder: Unremarkable as visualized. Reproductive: Status post hysterectomy. 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 Degenerative changes lumbosacral spine. Soft tissues: Unremarkable. IMPRESSION: 1. No acute process within the abdomen/pelvis. 2. Moderate fluid distended stomach.
[2020-11-06] MEDS ORDERED: Ketorolac 30 MG/ML SDV IVPUSH PRN (21:50)
[2020-11-06] MEDS ORDERED: Ondansetron 4 MG/2 ML SDV IVPUSH PRN (21:50)
--- NOTE | 2020-11-06 22:17 | PCM.HP ---
H&P History of Present Illness - General Date of Service: 11/06/20 Admit Problem/Dx: Admission Diagnosis/Problem Admission Diagnosis/Problem Abdominal pain - History of Present Illness Initial Comments - Free Text/Narative: 60F w/ pmh IBS, GERD, anxiety, depression, diverticulitis, episode of lymphocytic colitis 15y ago, bowel intussusception twice most recently 10-11y ago, ?SBO 6 mo ago while in hospital s/p L TKR p/w abdominal pain and distention. Pt states she's had on/off problems w/ abdominal distention since 5y ago when she was on opiates for C-spine surgery. She weaned herself off opiates years ago. Her last colonoscopy was ~4y ago. Her typical pattern is 1x bowel movement every 4-7 days. When she does have a BM it is of normal consistency and not hard. Appx 5d ago she began having abdominal distention again but thought it's the usual. The progressed and she developed severe distention w/ sharp RLQ pain episodes. Throughout she has been having BMs up to twice daily but they are 'stringy'. She denies any bloody BMs. She has had no vomiting and actually been able to maintain normal PO intake. She had spaghetti yesterday and a BLT w/o issues. She was seen in clinic yesterday and empirically given Flagyl for possible diverticulitis. ER evaluation found severe abdominal distention. CT revealed a distended stomach. It was no expressly read but there appears to be a copious amount of food or fecal matter collected in right abdomen. Notably there appears to be no intra-abdominal infection. Pt required NGT placement in the ED. Lower Abdomen Pain Score (Numeric/FACES): 7 - Related Data Allergies/Adverse Reactions: Allergies Allergy/AdvReac Type Severity Reaction Status Date / Time topiramate [From Topamax] Allergy Cannot Verified 11/06/20 19:14 Remember risperidone [From Risperdal] AdvReac Fever Verified 11/06/20 19:14 Home Medications: Home Meds traZODone 300 mg PO BEDTIME 06/19/15 [History] Gabapentin [Neurontin] 600 mg PO BID 10/03/16 [History] QUEtiapine [SEROquel] 300 mg PO BEDTIME 07/27/18 [History] Pantoprazole Sodium [Protonix] 40 mg PO DAILY 04/21/20 [History] Cranberry Fruit Extract [Cranberry] 200 mg PO DAILY 11/06/20 [History] Multivitamin with Iron [Multivitamins with Iron] 1 each PO DAILY 11/06/20 [History] Nabumetone [Relafen] 500 mg PO BID 11/06/20 [History] Past Medical History HEENT History: Reports: Impaired Vision Cardiovascular History: Reports: None Respiratory History: Reports: Pneumonia, Recurrent Gastrointestinal History: Reports: Diverticulosis, GERD, Irritable Bowel Syndrome, Other (See Below) 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 Genitourinary History: Reports: None, Other (See Below) Other Genitourinary History: kidney failure in apr 2020 [employer] History: Reports: , Other (See Below) Other OB/BYN History: hysterectomy, still has ovaries however no uterus. bartholin cyst Musculoskeletal History: Reports: Arthritis, Back Pain, Chronic, Fibromyalgia Neurological History: Reports: Neuropathy, Peripheral, Seizure, Other (See Below) Other Neuro History: Neuropathy Psychiatric History: Reports: Addiction, Anxiety, Depression, Psych Hospitaliza tion(s), Suicidal Ideation Endocrine/Metabolic History: Reports: Obesity/BMI 30+ Hematologic History: Reports: Blood Transfusion(s) Immunologic History: Reports: None Oncologic (Cancer) History: Reports: None Dermatologic History: Reports: None - Infectious Disease History Infectious Disease History: Reports: Chicken Pox, Measles, Mumps - Past Surgical History Head Surgeries/Procedures: Reports: None GI Surgical History: Reports: Appendectomy Female Surgical History: Reports: Hysterectomy Neurological Surgical History: Reports: Spinal Fusion Musculoskeletal Surgical History: Reports: Arthroscopic Knee, Knee Replacement, Shoulder Surgery Other Musculoskeletal Surgeries/Procedures:: neck fusion, left ankle surgery, L and R knee surgery Social & Family History - Family History Family Medical History: No Pertinent Family History - Tobacco Use Tobacco Use Status *Q: Never Tobacco User Second Hand Smoke Exposure: No - Caffeine Use Caffeine Use: Reports: None - Recreational Drug Use Recreational Drug Use: No H&P Review of Systems - Review of Systems: Review Of Systems: See Below General: Denies: Fever, Chills, Malaise, Decreased Appetite HEENT: Denies: Headaches Pulmonary: Denies: Shortness of Breath, Wheezing, Cough, Sputum Cardiovascular: Denies: Chest Pain, Palpitations Gastrointestinal: Reports: Abdominal Pain, Constipation, Diarrhea, Distension. Denies: Hematemesis, Vomiting Genitourinary: Denies: Dysuria Musculoskeletal: Denies: Neck Pain Skin: Denies: Jaundice Psychiatric: Reports: Anxiety. Denies: Confusion, Depression Neurological: Denies: Dizziness Hematologic/Lymphatic: Denies: Easy Bleeding Immunologic: Denies: Food Allergy Exam - Exam Exam: See Below - Vital Signs Vital Signs: Last Vital Signs Temp 97.6 F 11/06/20 19:23 Pulse 104 H 11/06/20 19:23 Resp 20 11/06/20 19:23 BP 128/100 H 11/06/20 19:23 Pulse Ox 100 11/06/20 19:23 Weight: 194 lb - Exam Quality Assessment: No: Supplemental Oxygen General: Alert, Oriented, Cooperative HEENT: Conjunctiva Clear Neck: Supple Lungs: Clear to Auscultation, Normal Respiratory Effort Cardiovascular: Regular Rate, Regular Rhythm GI/Abdominal Exam: Other (distended abd, +BS, TTP mostly right side, tympany, no guarding) Back Exam: Normal Inspection Extremities: No Pedal Edema Skin: Warm Neurological: Cranial Nerves Intact Neuro Extensive - Mental Status: Alert, Oriented x3, Normal Mood/Affect Neuro Extensive - Motor, Sensory, Reflexes: Normal Gait. No: Tremor Psychiatric: Alert, Normal Affect, Normal Mood - Patient Data Lab Results Last 24 hrs: Laboratory Results - last 24 hr 11/06/20 11/06/20 11/06/20 Range/Units 19:31 19:31 19:31 WBC 7.7 (5.0-10.0) 10^3/uL RBC 3.61 L (4.2-5.4) 10^6/uL Hgb 11.1 L D (12.0-16.0) g/dL Hct 33.3 L (37.0-47.0) % MCV 92.2 (80-100) fL MCH 30.7 (27.0-34.0) pg MCHC 33.3 (33.0-35.0) g/dL Plt Count 314 (150-450) 10^3/uL Neut % (Auto) 55.5 (42.2-75.2) % Lymph % (Auto) 34.0 (20.5-50.1) % [place] % (Auto) 7.6 (2-8) % Eos % (Auto) 2.0 (1.0-3.0) % Baso % (Auto) 0.9 (0.0-1.0) % Sodium 144 (136-145) mmol/L Potassium 3.8 (3.5-5.1) mmol/L Chloride 107 (98-107) mmol/L Carbon Dioxide 25 (21-32) mmol/L Anion Gap 15.8 H (7-13) mEq/L BUN 17 (7-18) mg/dL Creatinine 1.01 (0.55-1.02) mg/dL Est Cr Clr Drug Dosing 56.84 mL/min Estimated GFR (MDRD) 56 BUN/Creatinine Ratio 16.8 (No establ ref range) Glucose 112 H (74-99) mg/dL Lactic Acid 1.7 (0.4-2.0) mmol/L Calcium 8.6 (8.5-10.1) mg/dL Total Bilirubin 0.3 (0.2-1.0) mg/dL AST 15 (15-37) U/L ALT 27 (14-59) U/L Alkaline Phosphatase 86 (46-116) U/L Total Protein 7.5 (6.4-8.2) g/dL Albumin 3.7 (3.4-5.0) g/dL Globulin 3.8 Albumin/Globulin Ratio 1.0 Amylase 51 (25-115) U/L Lipase 156 (73-393) U/L Urine Color (YELLOW) Urine Appearance (CLEAR) Urine pH (5.0-9.0) Ur Specific [place] (1.005-1.030) Urine Protein (NEGATIVE) Urine Glucose (UA) (NEGATIVE) Urine Ketones (NEGATIVE) Urine Occult Blood (NEGATIVE) Urine Nitrite (NEGATIVE) Urine Bilirubin (NEGATIVE) Urine Urobilinogen (0.2-1.0) mg/dL Ur Leukocyte Esterase (NEGATIVE) Urine RBC /HPF Urine WBC (0-5/HPF) /HPF Ur Epithelial Cells (NOT SEEN) /HPF Amorphous Sediment (NOT SEEN) /HPF Urine Bacteria (0-FEW/HPF) /HPF Urine Mucus (NOT SEEN) /LPF Urine Opiates Screen (NEGATIVE) Ur Oxycodone Screen (NEGATIVE) Urine Methadone Screen (NEGATIVE) Ur Barbiturates Screen (NEGATIVE) U Tricyclic Antidepress (NEGATIVE) Ur Phencyclidine Scrn (NEGATIVE) Ur Amphetamine Screen (NEGATIVE) U Methamphetamines Scrn (NEGATIVE) Urine MDMA Screen (NEGATIVE) U Benzodiazepines Scrn (NEGATIVE) Urine Cocaine Screen (NEGATIVE) U Marijuana (THC) Screen (NEGATIVE) 11/06/20 11/06/20 Range/Units 20:52 20:52 WBC (5.0-10.0) 10^3/uL RBC (4.2-5.4) 10^6/uL Hgb (12.0-16.0) g/dL Hct (37.0-47.0) % MCV (80-100) fL MCH (27.0-34.0) pg MCHC (33.0-35.0) g/dL Plt Count (150-450) 10^3/uL Neut % (Auto) (42.2-75.2) % Lymph % (Auto) (20.5-50.1) % [place] % (Auto) (2-8) % Eos % (Auto) (1.0-3.0) % Baso % (Auto) (0.0-1.0) % Sodium (136-145) mmol/L Potassium (3.5-5.1) mmol/L Chloride (98-107) mmol/L Carbon Dioxide (21-32) mmol/L Anion Gap (7-13) mEq/L BUN (7-18) mg/dL Creatinine (0.55-1.02) mg/dL Est Cr Clr Drug Dosing mL/min Estimated GFR (MDRD) BUN/Creatinine Ratio (No establ ref range) Glucose (74-99) mg/dL Lactic Acid (0.4-2.0) mmol/L Calcium (8.5-10.1) mg/dL Total Bilirubin (0.2-1.0) mg/dL AST (15-37) U/L ALT (14-59) U/L Alkaline Phosphatase (46-116) U/L Total Protein (6.4-8.2) g/dL Albumin (3.4-5.0) g/dL Globulin Albumin/Globulin Ratio Amylase (25-115) U/L Lipase (73-393) U/L Urine Color Dark yellow (YELLOW) Urine Appearance Slightly cloudy (CLEAR) Urine pH 5.5 (5.0-9.0) Ur Specific [place] 1.025 (1.005-1.030) Urine Protein Negative (NEGATIVE) Urine Glucose (UA) Negative (NEGATIVE) Urine Ketones Negative (NEGATIVE) Urine Occult Blood Negative (NEGATIVE) Urine Nitrite Negative (NEGATIVE) Urine Bilirubin Negative (NEGATIVE) Urine Urobilinogen 0.2 (0.2-1.0) mg/dL Ur Leukocyte Esterase Trace H (NEGATIVE) Urine RBC Not seen /HPF Urine WBC 10-20 H (0-5/HPF) /HPF Ur Epithelial Cells Moderate H (NOT SEEN) /HPF Amorphous Sediment Few (NOT SEEN) /HPF Urine Bacteria Few (0-FEW/HPF) /HPF Urine Mucus Rare (NOT SEEN) /LPF Urine Opiates Screen Negative (NEGATIVE) Ur Oxycodone Screen Negative (NEGATIVE) Urine Methadone Screen Negative (NEGATIVE) Ur Barbiturates Screen Negative (NEGATIVE) U Tricyclic Antidepress Negative (NEGATIVE) Ur Phencyclidine Scrn Negative (NEGATIVE) Ur Amphetamine Screen Negative (NEGATIVE) U Methamphetamines Scrn Negative (NEGATIVE) Urine MDMA Screen Negative (NEGATIVE) U Benzodiazepines Scrn Negative (NEGATIVE) Urine Cocaine Screen Negative (NEGATIVE) U Marijuana (THC) Screen Negative (NEGATIVE) Result Diagrams: 11/06/20 19:31 11/06/20 19:31 Problem List Initiated/Reviewed/Updated: No Orders Last 24hrs: Active Orders 24 hr Category Date Time Status Admission Diagnosis [ADT] Stat ADT 11/06/20 21:19 Ordered Patient Status [ADT] Routine ADT 11/06/20 21:19 Active Patient Status [ADT] Routine ADT 11/06/20 21:50 Active Nothing per Oral Now Diet [DIET] Diet 11/07/20 Breakfast Active Abdomen 1V Upright [CR] Stat Exams 11/06/20 19:29 Ordered Chest 1V Frontal [CR] Stat Exams 11/06/20 19:29 Ordered Chest 1V Frontal [CR] Stat Exams 11/06/20 21:50 Ordered CORONAVIRUS COVID-19 ELIZABETH [MOLEC] Stat Lab 11/06/20 21:31 Received CULTURE BLOOD [BC] Stat Lab 11/06/20 19:31 Received CULTURE URINE [RM] Stat Lab 11/06/20 20:52 Received Dextrose 5%-0.45% NaCl [Dextrose 5%-1/2 NS] 1,000 ml Med 11/06/20 22:00 Active IV ASDIRECTED Heparin Sodium Med 11/07/20 06:00 Active 5,000 units SUBCUT Q8HR Ketorolac [Toradol] Med 11/06/20 21:50 Active 30 mg IVPUSH Q6H PRN Ondansetron [Zofran] Med 11/06/20 21:50 Active 4 mg IVPUSH Q6H PRN Sodium Chloride 0.9% [Normal Saline] 1,000 ml Med 11/06/20 19:29 Active IV .BOLUS NG [Nasogastric Orogastric Tube Insertion] [OM.PC] Oth 11/06/20 19:29 Ordered Routine Resuscitation Status Routine Resus Stat 11/06/20 21:50 Ordered Medication Orders Heparin Sodium (Porcine) (Heparin Sodium 5,000 Units/Ml Vial) 5,000 units SUBCUT Q8HR JULIET Sodium Chloride (Normal Saline) 1,000 mls @ 200 mls/hr IV .BOLUS ONE Stop: 11/07/20 00:28 Last Admin: 11/06/20 19:33 Dose: 200 mls/hr Documented by: LEANN Dextrose/Sodium Chloride (Dextrose 5%-1/2 Ns) 1,000 mls @ 125 mls/hr IV ASDIRECTED [facility] Ketorolac Tromethamine (Ketorolac 30 Mg/Ml Sdv) 30 mg IVPUSH Q6H PRN PRN Reason: Pain (moderate 4-6) Ondansetron HCl (Ondansetron 4 Mg/2 Ml Sdv) 4 mg IVPUSH Q6H PRN PRN Reason: Nausea/Vomiting Assessment/Plan Comment:: #abdominal pain and distention 2/2 constipation and gastric distention - c/w NGT for decompression overnight - will review CT w/ in-house radiologist tomorrow re mechanical obstruction - if improves w/ decompression will likely start on golytely to clear out right sided stool collection - hold flagyl since no evidence of infection - needs repeat outpatient colonoscopy #depression/anxiety/IBS/GERD - hold PO meds PPX - SQH Full code
--- NOTE | 2020-11-06 22:40 | CR ---
PROCEDURE INFORMATION: Exam: XR Chest Exam date and time: 11/06/2020 10:05 PM Age: 60 years old Clinical indication: Device placement; Ng tube; Additional info: No output ngt - confirm placement TECHNIQUE: Imaging protocol: XR of the chest Views: 1 view. Total images: 1 COMPARISON: CR Chest 1V Frontal 11/06/2020 7:32 PM FINDINGS: Tubes, catheters and devices: NG tube seen well only to the level of mid thorax. Lungs: Unremarkable. No consolidation. Pleural spaces: Unremarkable. No pleural effusion. No pneumothorax. Heart/Mediastinum: Unremarkable. No cardiomegaly. Bones/joints: Unremarkable. IMPRESSION: There is an NG tube in place however it is well seen only to the level of the mid thorax. Difficult to determine exact termination of tube due to technical factors. Suggest a repeat study with more optimal technique to better visualize the indwelling tube.
[2020-11-06] MEDS: Dextrose 5%-0.45% NaCl 1,000 ML IV SCH (22:50)
[2020-11-07] MEDS ORDERED: Lidocaine 2% Jelly 5 ML Tube ONE (00:20)
[2020-11-07] MEDS ORDERED: Methylnaltrexone 12 MG/0.6 ML SDV SUBCUT ONE (00:58)
[2020-11-07] MEDS ORDERED: Lidocaine 5% Oint 35.44 GM Tube TOP ONE (01:02)
[2020-11-07] MEDS: HYDROmorphone 0.5 MG/0.5 ML Syringe IVPUSH PRN ×2 (01:15→05:35)
[2020-11-07] MEDS ORDERED: Lidocaine 2% Jelly 5 ML Tube MUCMEM ONE ×2 (01:29→08:17)
[2020-11-07] MEDS ORDERED: Heparin Sodium 5,000 Units/ML Vial SUBCUT SCH (06:00)
[2020-11-07] MEDS: Dextrose 5%-0.45% NaCl 1,000 ML IV SCH (07:28)
[2020-11-07 08:38] VITALS: BP 124/89; PULSE 66
--- NOTE | 2020-11-07 13:07 | PCM.DCSUM1 ---
Discharge Summary - Hospital Course Free Text/Narrative:: 60F w/ pmh IBS, GERD, anxiety, depression, diverticulitis, episode of lymphocytic colitis 15y ago, bowel intussusception twice most recently 10-11y ago, ?SBO 6 mo ago while in hospital s/p L TKR p/w abdominal pain and distention. Pt states she's had on/off problems w/ abdominal distention since 5y ago when she was on opiates for C-spine surgery. She weaned herself off opiates years ago. Her last colonoscopy was ~4y ago. Her typical pattern is 1x bowel movement every 4-7 days. When she does have a BM it is of normal consistency and not hard. Appx 5d ago she began having abdominal distention again but thought it's the usual. The progressed and she developed severe distention w/ sharp RLQ pain episodes. Throughout she has been having BMs up to twice daily but they are 'stringy'. She denies any bloody BMs. She has had no vomiting and actually been able to maintain normal PO intake. She had spaghetti yesterday and a BLT w/o issues. She was seen in clinic yesterday and empirically given Flagyl for possible diverticulitis. ER evaluation found severe abdominal distention. CT revealed a distended stomach. It was no expressly read but there appears to be a copious amount of food or fecal matter collected in right abdomen. Notably there appears to be no intra-abdominal infection. Pt required NGT placement in the ED. The NGT was noted to have no output. Thorough evaluation revealed that the NGT caliber was too small for the thick gastric contents. Pt was allowed to rest overnight. In am when repeat NGT placement was attempted she refused and signed out AMA. Her PCP Dr Cole was updated. - Discharge Data Discharge Date: 11/07/20 Discharge Disposition: Against Medical Advice 07 Condition: Stable - Referral to Home Health Primary Care Physician: PCP Unobtainable - Discharge Plan *PRESCRIPTION DRUG MONITORING PROGRAM REVIEWED*: Yes *COPY OF PRESCRIPTION DRUG MONITORING REPORT IN PATIENT MAC: No Home Medications: Home Meds traZODone 300 mg PO BEDTIME 06/19/15 [History] Gabapentin [Neurontin] 600 mg PO BID 10/03/16 [History] QUEtiapine [SEROquel] 400 mg PO BEDTIME 07/27/18 [History] Pantoprazole Sodium [Protonix] 40 mg PO DAILY 04/21/20 [History] Cranberry Fruit Extract [Cranberry] 200 mg PO DAILY 11/06/20 [History] Multivitamin with Iron [Multivitamins with Iron] 1 each PO DAILY 11/06/20 [History] Nabumetone [Relafen] 500 mg PO BID 11/06/20 [History] - Discharge Summary/Plan Comment DC Time >30 min.: No - Patient Data Vitals - Most Recent: Last Vital Signs Temp 97.8 F 11/07/20 08:00 Pulse 66 11/07/20 08:00 Resp 18 11/07/20 08:00 BP 124/89 11/07/20 08:00 Pulse Ox 100 11/07/20 08:00 Weight - Most Recent: 195 lb 6.4 oz I&O - Last 24 hours: Intake & Output 11/06/20 11/07/20 11/07/20 22:59 06:59 14:59 Output Total 1250 Balance -1250 Lab Results - Last 24 hrs: Laboratory Results - last 24 hr 11/06/20 11/06/20 11/06/20 Range/Units 19:31 19:31 19:31 WBC 7.7 (5.0-10.0) 10^3/uL RBC 3.61 L (4.2-5.4) 10^6/uL Hgb 11.1 L D (12.0-16.0) g/dL Hct 33.3 L (37.0-47.0) % MCV 92.2 (80-100) fL MCH 30.7 (27.0-34.0) pg MCHC 33.3 (33.0-35.0) g/dL Plt Count 314 (150-450) 10^3/uL Neut % (Auto) 55.5 (42.2-75.2) % Lymph % (Auto) 34.0 (20.5-50.1) % [place] % (Auto) 7.6 (2-8) % Eos % (Auto) 2.0 (1.0-3.0) % Baso % (Auto) 0.9 (0.0-1.0) % Sodium 144 (136-145) mmol/L Potassium 3.8 (3.5-5.1) mmol/L Chloride 107 (98-107) mmol/L Carbon Dioxide 25 (21-32) mmol/L Anion Gap 15.8 H (7-13) mEq/L BUN 17 (7-18) mg/dL Creatinine 1.01 (0.55-1.02) mg/dL Est Cr Clr Drug Dosing 56.84 mL/min Estimated GFR (MDRD) 56 BUN/Creatinine Ratio 16.8 (No establ ref range) Glucose 112 H (74-99) mg/dL Lactic Acid 1.7 (0.4-2.0) mmol/L Calcium 8.6 (8.5-10.1) mg/dL Total Bilirubin 0.3 (0.2-1.0) mg/dL AST 15 (15-37) U/L ALT 27 (14-59) U/L Alkaline Phosphatase 86 (46-116) U/L Total Protein 7.5 (6.4-8.2) g/dL Albumin 3.7 (3.4-5.0) g/dL Globulin 3.8 Albumin/Globulin Ratio 1.0 Amylase 51 (25-115) U/L Lipase 156 (73-393) U/L Urine Color (YELLOW) Urine Appearance (CLEAR) Urine pH (5.0-9.0) Ur Specific [place] (1.005-1.030) Urine Protein (NEGATIVE) Urine Glucose (UA) (NEGATIVE) Urine Ketones (NEGATIVE) Urine Occult Blood (NEGATIVE) Urine Nitrite (NEGATIVE) Urine Bilirubin (NEGATIVE) Urine Urobilinogen (0.2-1.0) mg/dL Ur Leukocyte Esterase (NEGATIVE) Urine RBC /HPF Urine WBC (0-5/HPF) /HPF Ur Epithelial Cells (NOT SEEN) /HPF Amorphous Sediment (NOT SEEN) /HPF Urine Bacteria (0-FEW/HPF) /HPF Urine Mucus (NOT SEEN) /LPF Urine Opiates Screen (NEGATIVE) Ur Oxycodone Screen (NEGATIVE) Urine Methadone Screen (NEGATIVE) Ur Barbiturates Screen (NEGATIVE) U Tricyclic Antidepress (NEGATIVE) Ur Phencyclidine Scrn (NEGATIVE) Ur Amphetamine Screen (NEGATIVE) U Methamphetamines Scrn (NEGATIVE) Urine MDMA Screen (NEGATIVE) U Benzodiazepines Scrn (NEGATIVE) Urine Cocaine Screen (NEGATIVE) U Marijuana (THC) Screen (NEGATIVE) SARS-CoV-2 RNA (ELIZABETH) (NEGATIVE) 0311/06/20 11/06/20 Range/Units 20:52 20:52 21:31 WBC (5.0-10.0) 10^3/uL RBC (4.2-5.4) 10^6/uL Hgb (12.0-16.0) g/dL Hct (37.0-47.0) % MCV (80-100) fL MCH (27.0-34.0) pg MCHC (33.0-35.0) g/dL Plt Count (150-450) 10^3/uL Neut % (Auto) (42.2-75.2) % Lymph % (Auto) (20.5-50.1) % [place] % (Auto) (2-8) % Eos % (Auto) (1.0-3.0) % Baso % (Auto) (0.0-1.0) % Sodium (136-145) mmol/L Potassium (3.5-5.1) mmol/L Chloride (98-107) mmol/L Carbon Dioxide (21-32) mmol/L Anion Gap (7-13) mEq/L BUN (7-18) mg/dL Creatinine (0.55-1.02) mg/dL Est Cr Clr Drug Dosing mL/min Estimated GFR (MDRD) BUN/Creatinine Ratio (No establ ref range) Glucose (74-99) mg/dL Lactic Acid (0.4-2.0) mmol/L Calcium (8.5-10.1) mg/dL Total Bilirubin (0.2-1.0) mg/dL AST (15-37) U/L ALT (14-59) U/L Alkaline Phosphatase (46-116) U/L Total Protein (6.4-8.2) g/dL Albumin (3.4-5.0) g/dL Globulin Albumin/Globulin Ratio Amylase (25-115) U/L Lipase (73-393) U/L Urine Color Dark yellow (YELLOW) Urine Appearance Slightly cloudy (CLEAR) Urine pH 5.5 (5.0-9.0) Ur Specific [place] 1.025 (1.005-1.030) Urine Protein Negative (NEGATIVE) Urine Glucose (UA) Negative (NEGATIVE) Urine Ketones Negative (NEGATIVE) Urine Occult Blood Negative (NEGATIVE) Urine Nitrite Negative (NEGATIVE) Urine Bilirubin Negative (NEGATIVE) Urine Urobilinogen 0.2 (0.2-1.0) mg/dL Ur Leukocyte Esterase Trace H (NEGATIVE) Urine RBC Not seen /HPF Urine WBC 10-20 H (0-5/HPF) /HPF Ur Epithelial Cells Moderate H (NOT SEEN) /HPF Amorphous Sediment Few (NOT SEEN) /HPF Urine Bacteria Few (0-FEW/HPF) /HPF Urine Mucus Rare (NOT SEEN) /LPF Urine Opiates Screen Negative (NEGATIVE) Ur Oxycodone Screen Negative (NEGATIVE) Urine Methadone Screen Negative (NEGATIVE) Ur Barbiturates Screen Negative (NEGATIVE) U Tricyclic Antidepress Negative (NEGATIVE) Ur Phencyclidine Scrn Negative (NEGATIVE) Ur Amphetamine Screen Negative (NEGATIVE) U Methamphetamines Scrn Negative (NEGATIVE) Urine MDMA Screen Negative (NEGATIVE) U Benzodiazepines Scrn Negative (NEGATIVE) Urine Cocaine Screen Negative (NEGATIVE) U Marijuana (THC) Screen Negative (NEGATIVE) SARS-CoV-2 RNA (ELIZABETH) Negative (NEGATIVE) Med Orders - Current: Current Medications Discontinued Medications Heparin Sodium (Porcine) (Heparin Sodium 5,000 Units/Ml Vial) 5,000 units SUBCUT Q8HR JULIET Last Admin: 11/07/20 05:34 Dose: 5,000 units Documented by: Hydromorphone HCl (Hydromorphone 1 Mg/Ml Syringe) 1 mg IVPUSH ONETIME ONE Stop: 11/06/20 19:30 Last Admin: 11/06/20 19:36 Dose: 1 mg Documented by: Hydromorphone HCl (Hydromorphone 1 Mg/Ml Syringe) 1 mg IVPUSH ONETIME ONE Stop: 11/06/20 20:04 Last Admin: 11/06/20 20:07 Dose: 1 mg Documented by: Hydromorphone HCl (Hydromorphone 0.5 Mg/0.5 Ml Syringe) 0.5 mg IVPUSH Q4H PRN PRN Reason: Pain (severe 7-10) Last Admin: 11/07/20 05:35 Dose: 0.5 mg Documented by: Sodium Chloride (Normal Saline) 1,000 mls @ 200 mls/hr IV .BOLUS ONE Stop: 11/07/20 00:28 Last Admin: 11/06/20 19:33 Dose: 200 mls/hr Documented by: Dextrose/Sodium Chloride (Dextrose 5%-1/2 Ns) 1,000 mls @ 125 mls/hr IV ASDIRECTED JULIET Last Admin: 11/07/20 07:28 Dose: 125 mls/hr Documented by: Iopamidol (Iopamidol 612 Mg/Ml 100 Ml Bottle) 100 ml IVPUSH ONETIME ONE Stop: 11/06/20 20:10 Last Admin: 11/06/20 20:41 Dose: 75 ml Documented by: Ketorolac Tromethamine (Ketorolac 30 Mg/Ml Sdv) 30 mg IVPUSH Q6H PRN PRN Reason: Pain (moderate 4-6) Last Admin: 11/07/20 00:03 Dose: 30 mg Documented by: Lidocaine HCl (Lidocaine 2% Jelly 5 Ml Tube) Confirm Administered Dose 5 ml .ROUTE .STK-MED ONE Stop: 11/07/20 00:21 Last Admin: 11/07/20 01:19 Dose: 1 applic Documented by: Lidocaine HCl (Lidocaine 2% Jelly 5 Ml Tube) 5 ml MUCMEM ONETIME ONE Stop: 11/07/20 01:30 Last Admin: 11/07/20 05:34 Dose: Not Given Documented by: Lidocaine HCl (Lidocaine 2% Jelly 5 Ml Tube) 5 ml MUCMEM ONETIME ONE Stop: 11/07/20 08:18 Last Admin: 11/07/20 09:00 Dose: 5 ml Documented by: Methylnaltrexone [place] (Methylnaltrexone 12 Mg/0.6 Ml Sdv) 12 mg SUBCUT ONETIME ONE Stop: 11/07/20 00:59 Last Admin: 11/07/20 01:14 Dose: 12 mg Documented by: Metoclopramide HCl (Metoclopramide 10 Mg/2 Ml Sdv) 10 mg IVPUSH ONETIME ONE Stop: 11/06/20 20:58 Last Admin: 11/06/20 21:03 Dose: 10 mg Documented by: Ondansetron HCl (Ondansetron 4 Mg/2 Ml Sdv) 4 mg IVPUSH ONETIME ONE Stop: 11/06/20 19:30 Last Admin: 11/06/20 19:34 Dose: 4 mg Documented by: Ondansetron HCl (Ondansetron 4 Mg/2 Ml Sdv) 4 mg IVPUSH Q6H PRN PRN Reason: Nausea/Vomiting Last Admin: 11/07/20 07:52 Dose: 4 mg Documented by: - Exam General: Reports: Alert, Oriented Lungs: Reports: Clear to Auscultation, Normal Respiratory Effort Cardiovascular: Reports: Regular Rate, Regular Rhythm GI/Abdominal Exam: Normal Bowel Sounds, Other (distended, tympanic, tender diffusely but mostly right sided and epigastrium) Back Exam: Reports: Normal Inspection Extremities: No Pedal Edema Skin: Reports: Warm, Dry, Intact Neurological: Reports: No New Focal Deficit Psy/Mental Status: Reports: Alert, Normal Affect, Normal Mood
== END 2020-11-07 09:48 | disposition left against medical advice (07) | DRG 392 ==
LOC: DL.ED 19:07 → DL.MS 21:19 → DL.ED 21:51
PROVIDERS: ADMIT Internal Medicine; ATTEND Internal Medicine
DX: R10.30 Lower abdominal pain, unspecified (principal); K59.00 Constipation, unspecified; K31.89 Other diseases of stomach and duodenum; Z20.822 Contact with and (suspected) exposure to COVID-19; H54.7 Unspecified visual loss; K21.9 Gastro-esophageal reflux disease without esophagitis; K58.9 Irritable bowel syndrome, unspecified; K57.90 Diverticulosis of intestine, part unspecified, without perforation or abscess without bleeding; M19.90 Unspecified osteoarthritis, unspecified site; M54.9 Dorsalgia, unspecified; G89.29 Other chronic pain; M79.7 Fibromyalgia; G62.9 Polyneuropathy, unspecified; F41.9 Anxiety disorder, unspecified; G40.909 Epilepsy, unspecified, not intractable, without status epilepticus; F32.9 Major depressive disorder, single episode, unspecified; E66.9 Obesity, unspecified; R56.9 Unspecified convulsions; Z96.652 Presence of left artificial knee joint; Z28.82 Immunization not carried out because of caregiver refusal; Z88.8 Allergy status to other drugs, medicaments and biological substances; Z79.899 Other long term (current) drug therapy; Z87.01 Personal history of pneumonia (recurrent); Z87.19 Personal history of other diseases of the digestive system; Z90.710 Acquired absence of both cervix and uterus; Z90.49 Acquired absence of other specified parts of digestive tract; Z68.31 Body mass index [BMI] 31.0-31.9, adult
CPT/HCPCS: 36415; 71045; 74018; 74177; 80053; 80305; 81001; 82150; 83605; 83690; 85025; 87040; 87086; 96374; 96375; 96376; 99284; 99285; J1170 ×2; J2405; J2765; J7030; Q9967; 99222; 99238; A9270-GY; J1644; J1885; J7042; U0002

== ENCOUNTER 2023-02-22 16:54 | Emergency (ER) | payer MEDICARE, MEDICAID ==
[2023-02-22] MEDS: Acetaminophen/HYDROcodone 325-5 MG Tab PO ONE (19:49)
[2023-02-22 20:04] VITALS: BP 125/99; PULSE 125
== END 2023-02-22 19:57 | disposition home or self-care (01) ==
LOC: DL.ED 16:54
DX: S39.92XA Unspecified injury of lower back, initial encounter (principal); K21.9 Gastro-esophageal reflux disease without esophagitis; E66.9 Obesity, unspecified; Z68.30 Body mass index [BMI] 30.0-30.9, adult; Z88.8 Allergy status to other drugs, medicaments and biological substances; Z79.899 Other long term (current) drug therapy; W19.XXXA Unspecified fall, initial encounter
CPT/HCPCS: 72100; 99282; 99283; A9270-GY

== ENCOUNTER 2024-08-04 22:20 | Emergency (ER) | payer MEDICARE, MEDICAID ==
[2024-08-04] MEDS: Sodium Chloride 0.9% 10 ML Syringe FLUSH PRN (22:40)
[2024-08-04 22:49] LABS: BASOPHILS PERCENT AUTO 0.6 % (0.0-1.0); EOSINOPHILS PERCENT AUTO 2.8 % (1.0-3.0); HEMATOCRIT 34.4 % (37.0-47.0); HEMOGLOBIN 11.5 g/dL (12.0-16.0); LYMPHOCYTES PERCENT AUTO 46.8 % (20.5-50.1); MEAN CORPUSCULAR HEMOGLOBIN 30.7 pg (27.0-34.0); MEAN CORPUSCULAR HGB CONC 33.4 g/dL (33.0-35.0); MONOCYTES PERCENT AUTO 9.9 % (2-8); NEUTROPHILS PERCENT AUTO 39.9 % (42.2-75.2); PLATELET COUNT,PLT 266 10^3/uL (150-450); RED BLOOD CELL COUNT 3.74 10^6/uL (4.2-5.4); WHITE BLOOD CELL COUNT,WBC 7.1 10^3/uL (5.0-10.0)
[2024-08-04 23:09] LABS: A/G RATIO 0.9; ALANINE AMINOTRANSFERASE,ALT 19 U/L (14-59); ALBUMIN 3.4 g/dL (3.4-5.0); ALKALINE PHOSPHATASE 87 U/L (46-116); ANION GAP 14.6 mEq/L (7-13); ASPARTATE AMNIOTRANSFERASE,AST 7 U/L (15-37); BILIRUBIN TOTAL 0.2 mg/dL (0.2-1.0); BLOOD UREA NITROGEN,BUN 15 mg/dL (7-18); BUN/CREATININE RATIO 12.4 (No establ ref range); CALCIUM 8.6 mg/dL (8.5-10.1); CARBON DIOXIDE,CO2 27 mmol/L (21-32); CHLORIDE,CL 102 mmol/L (98-107); CREATININE 1.21 mg/dL (0.55-1.02); GLUCOSE RANDOM 111 mg/dL (70-99); POTASSIUM,K 3.6 mmol/L (3.5-5.1); PROTEIN TOTAL,TP 7.1 g/dL (6.4-8.2); SODIUM,NA 140 mmol/L (136-145)
[2024-08-04 23:10] LABS: ACETAMINOPHEN 0 ug/mL (10-30 (Therapeutic)); ESTIMATED GFR 51 mL/min (>=60); ETHANOL BLOOD MEDICAL < 3 mg/dL (0)
[2024-08-04] MEDS: Lactated Ringers 1,000 ML IV ONE (23:16)
[2024-08-05] MEDS: Lactated Ringers 1,000 ML IV ONE (00:34)
[2024-08-05 01:45] VITALS: BP 119/82; PULSE 70
[2024-08-05 02:04] LABS: APPEARANCE,URINE CLEAR (CLEAR); BILIRUBIN,URINE NEGATIVE (NEGATIVE); COLOR,URINE YELLOW (YELLOW); GLUCOSE,URINE NEGATIVE (NEGATIVE); KETONES,URINE NEGATIVE (NEGATIVE); LEUKOCYTE ESTERASE,URINE MODERATE (NEGATIVE); NITRITE,URINE NEGATIVE (NEGATIVE); OCCULT BLOOD,URINE NEGATIVE (NEGATIVE); PROTEIN,URINE NEGATIVE (NEGATIVE); UROBILINOGEN,URINE 0.2 mg/dL (0.2-1.0)
[2024-08-05 02:06] LABS: AMPHETAMINES,URINE NEGATIVE (NEGATIVE); BARBITURATES,URINE NEGATIVE (NEGATIVE); BENZODIAZEPINE,URINE NEGATIVE (NEGATIVE); MDMA (ECSTASY), URINE NEGATIVE (NEGATIVE); METHADONE,URINE NEGATIVE (NEGATIVE); METHAMPHETAMINES,URINE NEGATIVE (NEGATIVE); OPIATES,URINE POSITIVE (NEGATIVE); OXYCODONE,URINE NEGATIVE (NEGATIVE); PHENCYCLIDINE,URINE NEGATIVE (NEGATIVE); TCA,URINE POSITIVE (NEGATIVE)
[2024-08-05 02:14] LABS: BACTERIA,URINE FEW /HPF (0-FEW/HPF); EPITHELIAL CELLS,URINE FEW /HPF (NOT SEEN); MUCUS,URINE FEW /LPF (NOT SEEN); RBC,URINE 0-5 /HPF (0-5)
== END 2024-08-05 02:19 | disposition home or self-care (01) ==
LOC: DL.ED 22:20
DX: T42.8X1A Poisoning by antiparkinsonism drugs and other central muscle-tone depressants, accidental (unintentional), initial encounter (principal); T43.591A Poisoning by other antipsychotics and neuroleptics, accidental (unintentional), initial encounter; I95.2 Hypotension due to drugs; K21.9 Gastro-esophageal reflux disease without esophagitis; E66.9 Obesity, unspecified; Z88.8 Allergy status to other drugs, medicaments and biological substances; Z79.899 Other long term (current) drug therapy; Z90.49 Acquired absence of other specified parts of digestive tract; Z90.710 Acquired absence of both cervix and uterus; Z87.891 Personal history of nicotine dependence
CPT/HCPCS: 36415; 80053; 80143; 80179; 80305-QW; 80307; 81001; 85025; 87086; 93005; 93010; 94762; 96360; 96361; 99284; 99284-25; J7120